=== PATIENT | male | born 1980 | race Caucasian/White ===

== ENCOUNTER 2022-06-09 14:08 | Emergency (ER) | payer MEDICAID ==
[~2022-06-09] VITALS: Ht 175.3 cm; Wt 52.3 kg
[2022-06-09] MEDS ORDERED: normal saline 1000ML IV soln IVB ONE (23:35)
[2022-06-09 23:43] LABS: BASOPHILS # (AUTO) 0.1 X10'3 (0-0.2); BASOPHILS % (AUTO) 0.8 % (0-1); EOSINOPHILS # (AUTO) 0.1 X10'3 (0-0.9); EOSINOPHILS % (AUTO) 1.4 % (0-6); HEMATOCRIT 40.2 % (42.0-52.0); HEMOGLOBIN 13.9 g/dl (14.0-17.9); LYMPHOCYTES # (AUTO) 3.7 X10'3 (1.1-4.8); LYMPHOCYTES % (AUTO) 40.6 % (21-51); MEAN CORPUSCULAR HEMOGLOBIN 32.4 PG (27.0-31.0); MEAN CORPUSCULAR HGB CONC 34.5 g/dL (33.0-36.5); MEAN PLATELET VOLUME 8.4 FL (7.4-10.4); MONOCYTES # (AUTO) 0.7 X10'3 (0-0.9); MONOCYTES % (AUTO) 7.9 % (2-12); NEUTROPHILS # (AUTO) 4.5 X10'3 (1.8-7.7); NEUTROPHILS % (AUTO) 49.3 % (42-75); PLATELET COUNT 283 X10'3 (140-440); RED BLOOD COUNT 4.27 X10'6 (4.70-6.10); RED CELL DISTRIBUTION WIDTH 13.5 % (11.5-14.5); WHITE BLOOD COUNT 9.1 X10'3 (4.5-11.0)
[2022-06-09 23:59] LABS: HEMOGLOBIN A1C 13.9 % (4.5-6.2)
[2022-06-10 00:07] LABS: ALANINE AMINOTRANSFERASE 26 U/L (12-78); ALBUMIN 3.6 G/DL (3.4-5.0); ALBUMIN/GLOBULIN RATIO 1.4 (1.1-1.5); ALKALINE PHOSPHATASE 60 IU/L (46-116); ANION GAP 10 (8-16); ASPARTATE AMINO TRANSFERASE 13 U/L (10-37); BILIRUBIN,TOTAL 0.5 MG/DL (0.1-1.0); BLOOD UREA NITROGEN 18 MG/DL (7-18); BUN/CREATININE RATIO 27.7 (5.4-32.0); CALCIUM 9.7 MG/DL (8.5-10.1); CHLORIDE 95 MMOL/L (99-107); CREATININE 0.65 MG/DL (0.60-1.10); GLUCOSE 417 MG/DL (70-104); POTASSIUM 3.9 MMOL/L (3.5-5.1); SODIUM 129 MMOL/L (135-145); TOTAL CARBON DIOXIDE 24.2 MMOL/L (24-32); TOTAL PROTEIN 6.2 G/DL (6.4-8.2); eGFR > 90 ML/MIN
[2022-06-10] MEDS ORDERED: insulin regular, human 10 units/0.1 ml syringe SQ ONE (00:45)
[2022-06-10 01:07] VITALS: BP 109/69
== END 2022-06-10 01:09 | disposition home or self-care (01) ==
LOC: ER 14:11
DX: F32.A Depression, unspecified (principal); E11.65 Type 2 diabetes mellitus with hyperglycemia
CPT/HCPCS: 36415; 80053; 82948; 83036; 84443; 85025; 96360; 96372; 99283; J1815; J7030

== ENCOUNTER 2023-09-26 11:44 | Inpatient (IN) | payer MEDICAID ==
[~2023-09-26] VITALS: Ht 170.2 cm; Wt 53.6 kg
[2023-09-26] VITALS (11 sets, daily range): BP systolic 75–114; BP diastolic 40–61; PULSE 77–105; RESP 17–37; O2SAT 91–98
[2023-09-26] MEDS: insulin regular, human 10 units/0.1 ml syringe SQ ONE (12:13)
[2023-09-26] MEDS: normal saline 1000ML IV soln IV ONE (12:13)
[2023-09-26 12:35] LABS: BASOPHILS # (AUTO) 0.3 X10'3 (0-0.2); BASOPHILS % (AUTO) 0.9 % (0-1); EOSINOPHILS # (AUTO) 0.1 X10'3 (0-0.9); EOSINOPHILS % (AUTO) 0.2 % (0-6); HEMATOCRIT 42.7 % (42.0-52.0); HEMOGLOBIN 13.6 g/dl (14.0-17.9); LYMPHOCYTES % (AUTO) 8.3 % (21-51); MEAN CORPUSCULAR HEMOGLOBIN 29.1 PG (27.0-31.0); MEAN CORPUSCULAR HGB CONC 31.9 g/dL (33.0-36.5); MEAN CORPUSCULAR VOLUME 91.2 FL (78-98); MEAN PLATELET VOLUME 10.1 FL (7.4-10.4); MONOCYTES # (AUTO) 1.9 X10'3 (0-0.9); MONOCYTES % (AUTO) 5.4 % (2-12); NEUTROPHILS # (AUTO) 30.5 X10'3 (1.8-7.7); NEUTROPHILS % (AUTO) 85.2 % (42-75); PLATELET COUNT 426 X10'3 (140-440); RED BLOOD COUNT 4.68 X10'6 (4.70-6.10); RED CELL DISTRIBUTION WIDTH 14.3 % (11.5-14.5)
[2023-09-26 12:40] LABS: WHITE BLOOD COUNT 35.8 X10'3 (4.5-11.0)
[2023-09-26 13:22] LABS: BILIRUBIN,URINE NEGATIVE (Neg); CLARITY,URINE CLEAR (Clear); COLOR,URINE YELLOW (Yellow); GLUCOSE, URINE >=1000 mg/dl (Neg); KETONES,URINE >=80 mg/dl (Neg); LEUKOCYTE ESTERASE ,URINE NEGATIVE (Neg); NITRITES, URINE NEGATIVE (Neg); OCCULT BLOOD,URINE LARGE (Neg); PH,URINE 5.5 (4.8-8.0); PROTEIN,URINE 30 mg/dl (Neg); UROBILINOGEN,URINE 0.2 E.U/dL (0.2-1.0)
[2023-09-26 13:24] LABS: UA COLLECTION TYPE OTHER
[2023-09-26 13:31] LABS: BACTERIA,URINE FEW /HPF (Neg); SQUAMOUS EPITHELIAL CELL,UR NONE SEEN /LPF (FEW); WBC,URINE NONE SEEN /HPF (0-4)
[2023-09-26 13:35] LABS: ALBUMIN 3.4 G/DL (3.4-5.0); BLOOD UREA NITROGEN 45 MG/DL (7-18); BUN/CREATININE RATIO 22.6 (10.0-20.0); CALCIUM 9.7 MG/DL (8.5-10.1); CHLORIDE 96 MMOL/L (99-107); CREATININE 1.99 MG/DL (0.60-1.10); POTASSIUM 5.4 MMOL/L (3.5-5.1); SODIUM 132 MMOL/L (135-145); eCRCL 44 ML/MIN; eGFR 37 ML/MIN
[2023-09-26 13:35] LABS: ABG HCO3 1.8 mmol/L (22.0-26.0); ABG OXYGEN SATURATION 98.4 % (94-97); ABG PCO2 (T) 10.4 mmHg (35.0-48.0); ABG PH (T) 6.799 (7.340-7.440); ABG PO2 (T) 126.5 mmHg (75.0-100.0); ALLEN'S TEST POSITIVE; FCOHb 0.3 % (0.0-3.9); FHHb 1.6 % (0.0-5.0); FMetHb 0.3 % (0.0-1.5); FO2Hb 97.8 % (94-97); MODE ROOM AIR; PATIENT TEMPERATURE 30.8; TOTAL HEMOGLOBIN 12.5 G/dl (14.0-17.9)
[2023-09-26 13:40] LABS: GLUCOSE 632 MG/DL (70-104)
[2023-09-26] MEDS: CefTRIAXone/D5W-Rocephin 1gm 50 ML IV ONE (13:48)
[2023-09-26 13:52] LABS: TOTAL CELLS COUNTED 100
[2023-09-26 13:54] LABS: BURR CELLS 1+; PLATELET ESTIMATE NORMAL
[2023-09-26] MEDS: ringers solution, lacted 1,000 ML IV ONE ×4 (14:00→18:30)
[2023-09-26] MEDS: normal saline 1000ml 1,000 ML IV ONE (14:03)
[2023-09-26] MEDS: vancomycin 1,750 MG in NS 350ml IV soln IV ONE (14:03)
[2023-09-26] MEDS: normal saline 1000ml 1,000 ML IV SCH (14:03)
[2023-09-26 14:18] LABS: ALANINE AMINOTRANSFERASE 25 U/L (12-78); ALBUMIN/GLOBULIN RATIO 0.9 (1.1-1.5); ALKALINE PHOSPHATASE 307 IU/L (46-116); ASPARTATE AMINO TRANSFERASE 59 U/L (10-37); BILIRUBIN,DIRECT 0.1 MG/DL (0-0.3); BILIRUBIN,TOTAL 0.4 MG/DL (0.1-1.0); TOTAL PROTEIN 7.1 G/DL (6.4-8.2)
[2023-09-26] MEDS: sodium bicarbonate (8.4%) 1 mEq/ml syringe IV ONE (14:18)
[2023-09-26] MEDS: Insulin Reg/NS 100units/100mL 100 ML IV PRN (14:19)
[2023-09-26 14:22] LABS: TOTAL CARBON DIOXIDE < 5 MMOL/L (24-32)
[2023-09-26 14:38] LABS: ANION GAP 31 (8-16)
[2023-09-26] MEDS ORDERED: ROSU10TA28 PO (14:44)
[2023-09-26] MEDS: sodium bicarbonate 1meq/ml inj 150 ML in dextrose 5%-water 1,000 ML IV SCH (16:09)
[2023-09-26 17:38] LABS: URINE AMPHETAMINE SCREEN NEGATIVE (Neg); URINE BARBITUATE SCREEN NEGATIVE (Neg); URINE BENZODIAZEPINES SCREEN NEGATIVE (Neg); URINE CANNABINOID SCREEN NEGATIVE (Neg); URINE COCAINE SCREEN NEGATIVE (Neg); URINE METHADONE SCREEN NEGATIVE (Neg); URINE OPIATE SCREEN NEGATIVE (Neg); URINE PHENCYCLIDINE SCREEN NEGATIVE (Neg)
[2023-09-26] MEDS: LORazepam 2 mg/ml vial ONE (17:41)
[2023-09-26 18:52] LABS: BASOPHILS # (AUTO) 0.1 X10'3 (0-0.2); BASOPHILS % (AUTO) 0.4 % (0-1); EOSINOPHILS % (AUTO) 0.1 % (0-6); HEMATOCRIT 29.1 % (42.0-52.0); LYMPHOCYTES # (AUTO) 2.1 X10'3 (1.1-4.8); LYMPHOCYTES % (AUTO) 13.7 % (21-51); MEAN CORPUSCULAR HEMOGLOBIN 29.4 PG (27.0-31.0); MEAN CORPUSCULAR HGB CONC 34.5 g/dL (33.0-36.5); MEAN CORPUSCULAR VOLUME 85.2 FL (78-98); MEAN PLATELET VOLUME 9.4 FL (7.4-10.4); MONOCYTES # (AUTO) 0.3 X10'3 (0-0.9); MONOCYTES % (AUTO) 1.7 % (2-12); NEUTROPHILS # (AUTO) 13.1 X10'3 (1.8-7.7); NEUTROPHILS % (AUTO) 84.1 % (42-75); PLATELET COUNT 213 X10'3 (140-440); RED BLOOD COUNT 3.42 X10'6 (4.70-6.10); RED CELL DISTRIBUTION WIDTH 13.7 % (11.5-14.5); WHITE BLOOD COUNT 15.6 X10'3 (4.5-11.0)
[2023-09-26 18:55] LABS: ABG BASE EXCESS -19.5 mmol/L (-2.0-2.0); ABG HCO3 7.7 mmol/L (22.0-26.0); ABG OXYGEN SATURATION 92.1 % (94-97); ABG PCO2 (T) 18.9 mmHg (35.0-48.0); ABG PH (T) 7.202 (7.340-7.440); ABG PO2 (T) 45.5 mmHg (75.0-100.0); ALLEN'S TEST Modified; FCOHb 0.3 % (0.0-3.9); FHHb 7.9 % (0.0-5.0); FMetHb 0.3 % (0.0-1.5); FO2Hb 91.5 % (94-97); MODE ROOM AIR; PATIENT TEMPERATURE 32.9; TOTAL HEMOGLOBIN 9.8 G/dl (14.0-17.9)
[2023-09-26 19:05] LABS: APTT 32 SECONDS (22-32); INR 1.2 INR; PROTHROMBIN TIME 12.8 SECONDS (9.0-12.0)
[2023-09-26 19:18] LABS: ALANINE AMINOTRANSFERASE 25 U/L (12-78); ALBUMIN 2.2 G/DL (3.4-5.0); ALBUMIN/GLOBULIN RATIO 0.9 (1.1-1.5); ALKALINE PHOSPHATASE 182 IU/L (46-116); ANION GAP 24 (8-16); ASPARTATE AMINO TRANSFERASE 76 U/L (10-37); BILIRUBIN,TOTAL 0.4 MG/DL (0.1-1.0); BLOOD UREA NITROGEN 39 MG/DL (7-18); CALCIUM 7.9 MG/DL (8.5-10.1); CHLORIDE 109 MMOL/L (99-107); GLUCOSE 144 MG/DL (70-104); MAGNESIUM 1.6 MG/DL (1.5-2.4); PHOSPHORUS 2.8 MG/DL (2.3-4.5); SODIUM 143 MMOL/L (135-145); TOTAL PROTEIN 4.6 G/DL (6.4-8.2); eCRCL 59 ML/MIN; eGFR 51 ML/MIN
[2023-09-26 19:32] LABS: CREATINE KINASE 3566 U/L (39-308)
[2023-09-26 19:37] LABS: POTASSIUM 2.9 MMOL/L (3.5-5.1); TOTAL CARBON DIOXIDE 10.2 MMOL/L (24-32)
[2023-09-26] MEDS: LORazepam 2 mg/ml vial IV ONE (19:39)
[2023-09-26] MEDS ORDERED: potassium Cl 20 mEq SR tablet PO PRN (19:45)
[2023-09-26 20:03] LABS: LIPASE > 375 U/L (16-77)
[2023-09-26] MEDS: potassium Cl 40MEQ/270ML bag 270 ML IV PRN (20:19)
[2023-09-26] MEDS ORDERED: Dextrose 10%-water IV solution 1,000 ML IV SCH (22:00)
[2023-09-26] MEDS: Dextrose 10%-water IV solution 1,000 ML IV SCH (22:17)
[2023-09-27] VITALS (35 sets, daily range): BP systolic 79–124; BP diastolic 46–74; PULSE 81–123; RESP 11–50; O2SAT 87–100
[2023-09-27] MEDS: Insulin Reg/NS 100units/100mL 100 ML IV PRN
[2023-09-27 01:11] LABS: ALBUMIN 2.1 G/DL (3.4-5.0); ANION GAP 15 (8-16); BLOOD UREA NITROGEN 36 MG/DL (7-18); BUN/CREATININE RATIO 22.4 (10.0-20.0); CALCIUM 7.8 MG/DL (8.5-10.1); CHLORIDE 108 MMOL/L (99-107); CREATININE 1.61 MG/DL (0.60-1.10); GLUCOSE 146 MG/DL (70-104); MAGNESIUM 1.3 MG/DL (1.5-2.4); POTASSIUM 3.3 MMOL/L (3.5-5.1); SODIUM 142 MMOL/L (135-145); TOTAL CARBON DIOXIDE 18.9 MMOL/L (24-32); eCRCL 55 ML/MIN; eGFR 47 ML/MIN
[2023-09-27] MEDS: magnesium 2GM in 50ml NS 50 ML IV PRN (01:29)
[2023-09-27] MEDS ORDERED: Insulin Reg/NS 100units/100mL 100 ML IV PRN (01:31)
[2023-09-27] MEDS: ringers solution, lacted 1,000 ML IV ONE ×3 (02:07→08:31)
[2023-09-27] MEDS: magnesium 4gm in 100ml NS 100 ML IV PRN (02:29)
[2023-09-27 02:47] LABS: ABG BASE EXCESS -8.1 mmol/L (-2.0-2.0); ABG HCO3 18.8 mmol/L (22.0-26.0); ABG OXYGEN SATURATION 87.8 % (94-97); ABG PH (T) 7.256 (7.340-7.440); ABG PO2 (T) 46.9 mmHg (75.0-100.0); ALLEN'S TEST Modified; FCOHb 0.4 % (0.0-3.9); FHHb 12.1 % (0.0-5.0); FMetHb 0.3 % (0.0-1.5); FO2Hb 87.2 % (94-97); MODE BiPAP; PATIENT TEMPERATURE 36.6; RESPIRATORY RATE 8 b/min; TOTAL HEMOGLOBIN 12.7 G/dl (14.0-17.9)
[2023-09-27] MEDS: NORepinephrine 8mg/ 250ml NS 250 ML IV ONE (03:01)
[2023-09-27] MEDS: NORepinephrine 8mg/ 250ml NS 250 ML IV SCH (03:01)
[2023-09-27] MEDS ORDERED: rocuronium 10mg/ml inj IV ONE (03:30)
[2023-09-27] MEDS: sodium phosphate inj. 30 MMOL in dextrose 5%-water 250 ML IV PRN (03:39)
[2023-09-27] MEDS: rocuronium 10mg/ml inj IV ONE (03:40)
[2023-09-27] MEDS: propofol 1000mg/100ml bottle 100 ML IV ONE (03:40)
[2023-09-27] MEDS: propofol 1000mg/100ml bottle 100 ML IV SCH (03:40)
[2023-09-27 04:09] LABS: BASOPHILS % (AUTO) 0.7 % (0-1); EOSINOPHILS % (AUTO) 0.1 % (0-6); HEMATOCRIT 37.3 % (42.0-52.0); HEMOGLOBIN 13.2 g/dl (14.0-17.9); LYMPHOCYTES % (AUTO) 33.7 % (21-51); MEAN CORPUSCULAR HEMOGLOBIN 29.3 PG (27.0-31.0); MEAN CORPUSCULAR HGB CONC 35.4 g/dL (33.0-36.5); MEAN CORPUSCULAR VOLUME 82.9 FL (78-98); MEAN PLATELET VOLUME 9.2 FL (7.4-10.4); MONOCYTES # (AUTO) 0.2 X10'3 (0-0.9); MONOCYTES % (AUTO) 5.4 % (2-12); NEUTROPHILS # (AUTO) 1.8 X10'3 (1.8-7.7); NEUTROPHILS % (AUTO) 60.1 % (42-75); PLATELET COUNT 236 X10'3 (140-440); RED CELL DISTRIBUTION WIDTH 14.6 % (11.5-14.5); WHITE BLOOD COUNT 3.1 X10'3 (4.5-11.0)
[2023-09-27 04:26] LABS: ALANINE AMINOTRANSFERASE 26 U/L (12-78); ALBUMIN 1.8 G/DL (3.4-5.0); ALBUMIN/GLOBULIN RATIO 0.8 (1.1-1.5); ALKALINE PHOSPHATASE 164 IU/L (46-116); ANION GAP 8 (8-16); ASPARTATE AMINO TRANSFERASE 87 U/L (10-37); BILIRUBIN,TOTAL 0.3 MG/DL (0.1-1.0); BLOOD UREA NITROGEN 33 MG/DL (7-18); BUN/CREATININE RATIO 21.7 (10.0-20.0); CALCIUM 7.2 MG/DL (8.5-10.1); CHLORIDE 106 MMOL/L (99-107); CREATININE 1.52 MG/DL (0.60-1.10); GLUCOSE 217 MG/DL (70-104); MAGNESIUM 2.5 MG/DL (1.5-2.4); PHOSPHORUS 4.6 MG/DL (2.3-4.5); SODIUM 139 MMOL/L (135-145); TOTAL CARBON DIOXIDE 24.7 MMOL/L (24-32); TOTAL PROTEIN 4.2 G/DL (6.4-8.2); eCRCL 58 ML/MIN; eGFR 50 ML/MIN
[2023-09-27 05:16] LABS: TOTAL CELLS COUNTED 100
[2023-09-27 05:17] LABS: PLATELET ESTIMATE NORMAL
[2023-09-27 05:18] LABS: ANISOCYTOSIS FEW; BURR CELLS FEW; TEAR DROP CELLS FEW
[2023-09-27] MEDS: normal saline 1000ml 1,000 ML IV SCH (05:45)
[2023-09-27] MEDS: potassium CL 20mEq in D5-1/2NS 1,000 ML IV PRN (06:05)
[2023-09-27] MEDS: FENTANYL-0.9 % NACL/PF 100 ML IV PRN (07:05)
[2023-09-27] MEDS: piperacillin/tazo 4.5gm/100ml 100 ML IV SCH (08:31)
[2023-09-27] MEDS: pantoprazole 40 MG vial IV SCH (09:01)
[2023-09-27] MEDS: enoxaparin 30mg/0.3ml syringe SUBCUT SCH (09:02)
[2023-09-27 09:48] LABS: ALBUMIN 1.6 G/DL (3.4-5.0); ANION GAP 10 (8-16); BLOOD UREA NITROGEN 32 MG/DL (7-18); BUN/CREATININE RATIO 21.9 (10.0-20.0); CALCIUM 7.6 MG/DL (8.5-10.1); CHLORIDE 109 MMOL/L (99-107); CREATININE 1.46 MG/DL (0.60-1.10); GLUCOSE 174 MG/DL (70-104); MAGNESIUM 2.5 MG/DL (1.5-2.4); POTASSIUM 3.5 MMOL/L (3.5-5.1); SODIUM 140 MMOL/L (135-145); TOTAL CARBON DIOXIDE 21.2 MMOL/L (24-32); eCRCL 60 ML/MIN; eGFR 52 ML/MIN
[2023-09-27 09:49] LABS: CREATINE KINASE 2337 U/L (39-308)
[2023-09-27] MEDS ORDERED: DEXTROSE 15 GM of carb/4 tabs (each vial/BOTTLE has 4 tablets) PO PRN ×2 (10:40)
[2023-09-27] MEDS ORDERED: dextrose 50%-water 50ml dispensing syringe IV PRN (10:40)
[2023-09-27] MEDS ORDERED: glucagon, human recombinant 1mg kit SUBCUT PRN (10:40)
[2023-09-27] MEDS: insulin Lispro (HumaLOG) vial - multi-dose SQ SCH (12:18)
[2023-09-27] MEDS: ringers solution, lacted 1,000 ML IV SCH (12:33)
[2023-09-27] MEDS: heparin, porcine 5000 units/ml vial SQ SCH (16:08)
[2023-09-27 16:29] LABS: ABG BASE EXCESS -4.2 mmol/L (-2.0-2.0); ABG HCO3 20.5 mmol/L (22.0-26.0); ABG OXYGEN SATURATION 97.3 % (94-97); ABG PCO2 (T) 37.5 mmHg (35.0-48.0); ABG PH (T) 7.359 (7.340-7.440); ABG PO2 (T) 89.1 mmHg (75.0-100.0); FCOHb 0.2 % (0.0-3.9); FHHb 2.7 % (0.0-5.0); FMetHb 0.3 % (0.0-1.5); FO2Hb 96.8 % (94-97); MODE PRVC; PATIENT TEMPERATURE 37.6; PEEP 8 cm H2O; RESPIRATORY RATE 12 b/min; TIDAL VOLUME 500 mL
[2023-09-27] MEDS: sodium phosphate inj. 15 MMOL in dextrose 5%-water 250 ML IV PRN (17:35)
[2023-09-27] MEDS ORDERED: insulin regular, human U-100 3ml vial - multi-dose SQ SCH (19:55)
[2023-09-27] MEDS: insulin glargine (Lantus) pen - multi-dose SQ SCH (20:01)
[2023-09-27] MEDS: insulin regular, human U-100 3ml vial - multi-dose SQ SCH (21:16)
[2023-09-28] VITALS (36 sets, daily range): BP systolic 93–125; BP diastolic 54–79; PULSE 84–96; RESP 11–16; O2SAT 92–100
[2023-09-28 02:10] LABS: ABG BASE EXCESS -4.8 mmol/L (-2.0-2.0); ABG HCO3 20.4 mmol/L (22.0-26.0); ABG OXYGEN SATURATION 96.6 % (94-97); ABG PCO2 (T) 38.8 mmHg (35.0-48.0); ABG PO2 (T) 80.4 mmHg (75.0-100.0); FCOHb 0.1 % (0.0-3.9); FHHb 3.4 % (0.0-5.0); FMetHb 0.3 % (0.0-1.5); FO2Hb 96.2 % (94-97); MODE PRVC; PATIENT TEMPERATURE 37.3; PEEP 5 cm H2O; RESPIRATORY RATE 12 b/min; TIDAL VOLUME 500 mL; TOTAL HEMOGLOBIN 11.7 G/dl (14.0-17.9)
[2023-09-28 02:54] LABS: BASOPHILS % (AUTO) 0 % (0-1); EOSINOPHILS % (AUTO) 0 % (0-6); HEMATOCRIT 31.3 % (42.0-52.0); HEMOGLOBIN 10.9 g/dl (14.0-17.9); LYMPHOCYTES # (AUTO) 1.4 X10'3 (1.1-4.8); LYMPHOCYTES % (AUTO) 9.4 % (21-51); MEAN CORPUSCULAR HEMOGLOBIN 29.2 PG (27.0-31.0); MEAN CORPUSCULAR HGB CONC 34.8 g/dL (33.0-36.5); MEAN CORPUSCULAR VOLUME 83.8 FL (78-98); MONOCYTES # (AUTO) 0.5 X10'3 (0-0.9); MONOCYTES % (AUTO) 3.5 % (2-12); NEUTROPHILS # (AUTO) 12.8 X10'3 (1.8-7.7); NEUTROPHILS % (AUTO) 87.1 % (42-75); PLATELET COUNT 154 X10'3 (140-440); RED BLOOD COUNT 3.73 X10'6 (4.70-6.10); RED CELL DISTRIBUTION WIDTH 14.5 % (11.5-14.5); WHITE BLOOD COUNT 14.7 X10'3 (4.5-11.0)
[2023-09-28 03:30] LABS: ALANINE AMINOTRANSFERASE 26 U/L (12-78); ALBUMIN 1.5 G/DL (3.4-5.0); ALBUMIN/GLOBULIN RATIO 0.6 (1.1-1.5); ALKALINE PHOSPHATASE 124 IU/L (46-116); ANION GAP 7 (8-16); ASPARTATE AMINO TRANSFERASE 47 U/L (10-37); BILIRUBIN,TOTAL 0.3 MG/DL (0.1-1.0); BLOOD UREA NITROGEN 29 MG/DL (7-18); BUN/CREATININE RATIO 15.3 (10.0-20.0); CALCIUM 7.5 MG/DL (8.5-10.1); CHLORIDE 108 MMOL/L (99-107); CREATININE 1.89 MG/DL (0.60-1.10); GLUCOSE 296 MG/DL (70-104); MAGNESIUM 2.3 MG/DL (1.5-2.4); PHOSPHORUS 3.2 MG/DL (2.3-4.5); POTASSIUM 3.6 MMOL/L (3.5-5.1); SODIUM 139 MMOL/L (135-145); TOTAL CARBON DIOXIDE 23.6 MMOL/L (24-32); TOTAL PROTEIN 4.1 G/DL (6.4-8.2); TRIGLYCERIDES 120 MG/DL (20-135); eCRCL 47 ML/MIN; eGFR 39 ML/MIN
[2023-09-28 08:48] LABS: CREATINE KINASE 783 U/L (39-308)
[2023-09-28 10:19] LABS: TOTAL CELLS COUNTED 100
[2023-09-28 10:20] LABS: PLATELET ESTIMATE NORMAL; SMUDGE CELLS FEW
[2023-09-28 10:21] LABS: BURR CELLS 1+
[2023-09-28] MEDS: ringers solution, lacted 1,000 ML IV ONE ×2 (10:22→12:32)
[2023-09-29] VITALS (34 sets, daily range): BP systolic 97–158; BP diastolic 56–89; PULSE 85–102; RESP 10–21; O2SAT 94–99
[2023-09-29 02:53] LABS: BASOPHILS % (AUTO) 0.3 % (0-1); EOSINOPHILS # (AUTO) 0.1 X10'3 (0-0.9); EOSINOPHILS % (AUTO) 1.2 % (0-6); HEMATOCRIT 27.9 % (42.0-52.0); HEMOGLOBIN 9.7 g/dl (14.0-17.9); LYMPHOCYTES # (AUTO) 1.5 X10'3 (1.1-4.8); LYMPHOCYTES % (AUTO) 15.9 % (21-51); MEAN CORPUSCULAR HGB CONC 34.7 g/dL (33.0-36.5); MEAN CORPUSCULAR VOLUME 83.7 FL (78-98); MEAN PLATELET VOLUME 9.7 FL (7.4-10.4); MONOCYTES # (AUTO) 0.4 X10'3 (0-0.9); MONOCYTES % (AUTO) 3.7 % (2-12); NEUTROPHILS # (AUTO) 7.7 X10'3 (1.8-7.7); NEUTROPHILS % (AUTO) 78.9 % (42-75); PLATELET COUNT 116 X10'3 (140-440); RED BLOOD COUNT 3.33 X10'6 (4.70-6.10); RED CELL DISTRIBUTION WIDTH 15.1 % (11.5-14.5); WHITE BLOOD COUNT 9.7 X10'3 (4.5-11.0)
[2023-09-29 03:03] LABS: ALANINE AMINOTRANSFERASE 18 U/L (12-78); ALBUMIN 1.4 G/DL (3.4-5.0); ALBUMIN/GLOBULIN RATIO 0.5 (1.1-1.5); ALKALINE PHOSPHATASE 108 IU/L (46-116); ANION GAP 4 (8-16); ASPARTATE AMINO TRANSFERASE 30 U/L (10-37); BILIRUBIN,TOTAL 0.3 MG/DL (0.1-1.0); BLOOD UREA NITROGEN 26 MG/DL (7-18); BUN/CREATININE RATIO 15.2 (10.0-20.0); CALCIUM 7.9 MG/DL (8.5-10.1); CHLORIDE 109 MMOL/L (99-107); CREATININE 1.71 MG/DL (0.60-1.10); GLUCOSE 127 MG/DL (70-104); MAGNESIUM 2.1 MG/DL (1.5-2.4); PHOSPHORUS 2.2 MG/DL (2.3-4.5); PREALBUMIN 6.4 MG/DL (19-36); SODIUM 140 MMOL/L (135-145); TOTAL CARBON DIOXIDE 27.4 MMOL/L (24-32); TOTAL PROTEIN 4.3 G/DL (6.4-8.2); eCRCL 52 ML/MIN; eGFR 44 ML/MIN
[2023-09-29 03:05] LABS: POTASSIUM 2.9 MMOL/L (3.5-5.1)
[2023-09-29 03:22] LABS: ABG BASE EXCESS -1.4 mmol/L (-2.0-2.0); ABG HCO3 23.6 mmol/L (22.0-26.0); ABG OXYGEN SATURATION 97.4 % (94-97); ABG PCO2 (T) 41.7 mmHg (35.0-48.0); ABG PH (T) 7.372 (7.340-7.440); ABG PO2 (T) 89.4 mmHg (75.0-100.0); FCOHb 0.3 % (0.0-3.9); FHHb 2.6 % (0.0-5.0); FMetHb 0.3 % (0.0-1.5); FO2Hb 96.8 % (94-97); MODE VENT - AC; PATIENT TEMPERATURE 37.4; PEEP 5 cm H2O; RESPIRATORY RATE 12 b/min; TIDAL VOLUME 500 mL; TOTAL HEMOGLOBIN 10.2 G/dl (14.0-17.9)
[2023-09-30] VITALS (35 sets, daily range): BP systolic 97–173; BP diastolic 57–94; PULSE 87–103; RESP 11–22; O2SAT 95–100
[2023-09-30 03:29] LABS: ABG BASE EXCESS 0.6 mmol/L (-2.0-2.0); ABG HCO3 24.6 mmol/L (22.0-26.0); ABG OXYGEN SATURATION 96.2 % (94-97); ABG PCO2 (T) 37.9 mmHg (35.0-48.0); ABG PH (T) 7.432 (7.340-7.440); ABG PO2 (T) 73.1 mmHg (75.0-100.0); FCOHb 0.5 % (0.0-3.9); FHHb 3.8 % (0.0-5.0); FMetHb 0.3 % (0.0-1.5); FO2Hb 95.4 % (94-97); MODE VENT - prvc; PATIENT TEMPERATURE 37.4; PEEP 5 cm H2O; RESPIRATORY RATE 12 b/min; TIDAL VOLUME 500 mL; TOTAL HEMOGLOBIN 12.3 G/dl (14.0-17.9)
[2023-09-30 03:31] LABS: BASOPHILS % (AUTO) 0.4 % (0-1); EOSINOPHILS # (AUTO) 0.2 X10'3 (0-0.9); EOSINOPHILS % (AUTO) 1.6 % (0-6); HEMATOCRIT 27.5 % (42.0-52.0); HEMOGLOBIN 9.5 g/dl (14.0-17.9); LYMPHOCYTES # (AUTO) 1.1 X10'3 (1.1-4.8); MEAN CORPUSCULAR HEMOGLOBIN 29.1 PG (27.0-31.0); MEAN CORPUSCULAR HGB CONC 34.6 g/dL (33.0-36.5); MEAN CORPUSCULAR VOLUME 84.2 FL (78-98); MONOCYTES # (AUTO) 0.7 X10'3 (0-0.9); MONOCYTES % (AUTO) 6.2 % (2-12); NEUTROPHILS # (AUTO) 9.2 X10'3 (1.8-7.7); NEUTROPHILS % (AUTO) 81.8 % (42-75); PLATELET COUNT 131 X10'3 (140-440); RED BLOOD COUNT 3.27 X10'6 (4.70-6.10); RED CELL DISTRIBUTION WIDTH 15.2 % (11.5-14.5); WHITE BLOOD COUNT 11.3 X10'3 (4.5-11.0)
[2023-09-30 03:43] LABS: ALANINE AMINOTRANSFERASE 19 U/L (12-78); ALBUMIN 1.3 G/DL (3.4-5.0); ALBUMIN/GLOBULIN RATIO 0.4 (1.1-1.5); ALKALINE PHOSPHATASE 108 IU/L (46-116); ANION GAP 8 (8-16); ASPARTATE AMINO TRANSFERASE 28 U/L (10-37); BILIRUBIN,TOTAL 0.3 MG/DL (0.1-1.0); BLOOD UREA NITROGEN 26 MG/DL (7-18); BUN/CREATININE RATIO 15.5 (10.0-20.0); CALCIUM 8.5 MG/DL (8.5-10.1); CHLORIDE 111 MMOL/L (99-107); CREATININE 1.68 MG/DL (0.60-1.10); GLUCOSE 149 MG/DL (70-104); MAGNESIUM 1.8 MG/DL (1.5-2.4); PHOSPHORUS 2.3 MG/DL (2.3-4.5); POTASSIUM 3.8 MMOL/L (3.5-5.1); SODIUM 145 MMOL/L (135-145); TOTAL CARBON DIOXIDE 26.3 MMOL/L (24-32); TOTAL PROTEIN 4.8 G/DL (6.4-8.2); eCRCL 52 ML/MIN; eGFR 45 ML/MIN
[2023-09-30] MEDS: fondaparinux 2.5 MG/0.5 ML syringe SUBCUT SCH (07:34)
[2023-09-30] MEDS ORDERED: DEXTROSE 15 GM of carb/4 tabs (each vial/BOTTLE has 4 tablets) OGT PRN ×2 (11:45)
[2023-09-30] MEDS: propofol 1000mg/100ml bottle 100 ML IV SCH (16:27)
[2023-09-30] MEDS: docusate sodium 100mg/10ml UD cup OGT SCH (20:27)
[2023-10-01] VITALS (36 sets, daily range): BP systolic 100–143; BP diastolic 63–91; PULSE 86–112; RESP 12–28; O2SAT 97–100
[2023-10-01 03:10] LABS: BASOPHILS % (AUTO) 0.4 % (0-1); EOSINOPHILS # (AUTO) 0.2 X10'3 (0-0.9); EOSINOPHILS % (AUTO) 3.5 % (0-6); HEMATOCRIT 28.2 % (42.0-52.0); HEMOGLOBIN 9.5 g/dl (14.0-17.9); LYMPHOCYTES # (AUTO) 1.4 X10'3 (1.1-4.8); LYMPHOCYTES % (AUTO) 21.8 % (21-51); MEAN CORPUSCULAR HEMOGLOBIN 28.9 PG (27.0-31.0); MEAN CORPUSCULAR HGB CONC 33.9 g/dL (33.0-36.5); MEAN CORPUSCULAR VOLUME 85.5 FL (78-98); MONOCYTES # (AUTO) 0.7 X10'3 (0-0.9); MONOCYTES % (AUTO) 11.2 % (2-12); NEUTROPHILS % (AUTO) 63.1 % (42-75); PLATELET COUNT 158 X10'3 (140-440); RED CELL DISTRIBUTION WIDTH 15.1 % (11.5-14.5); WHITE BLOOD COUNT 6.4 X10'3 (4.5-11.0)
[2023-10-01 03:16] LABS: ABG BASE EXCESS -1.5 mmol/L (-2.0-2.0); ABG HCO3 22.4 mmol/L (22.0-26.0); ABG OXYGEN SATURATION 98.3 % (94-97); ABG PCO2 (T) 35.9 mmHg (35.0-48.0); ABG PH (T) 7.417 (7.340-7.440); ABG PO2 (T) 109.5 mmHg (75.0-100.0); FCOHb 0.3 % (0.0-3.9); FHHb 1.7 % (0.0-5.0); FMetHb 0.3 % (0.0-1.5); FO2Hb 97.7 % (94-97); MODE VENT - PRVC; PATIENT TEMPERATURE 37.9; PEEP 5 cm H2O; RESPIRATORY RATE 12 b/min; TIDAL VOLUME 500 mL; TOTAL HEMOGLOBIN 10.5 G/dl (14.0-17.9)
[2023-10-01 03:43] LABS: ALANINE AMINOTRANSFERASE 14 U/L (12-78); ALBUMIN 1.1 G/DL (3.4-5.0); ALBUMIN/GLOBULIN RATIO 0.3 (1.1-1.5); ALKALINE PHOSPHATASE 117 IU/L (46-116); ANION GAP 8 (8-16); ASPARTATE AMINO TRANSFERASE 23 U/L (10-37); BILIRUBIN,TOTAL 0.2 MG/DL (0.1-1.0); BLOOD UREA NITROGEN 25 MG/DL (7-18); BUN/CREATININE RATIO 16.3 (10.0-20.0); CALCIUM 8.4 MG/DL (8.5-10.1); CHLORIDE 107 MMOL/L (99-107); CREATININE 1.53 MG/DL (0.60-1.10); GLUCOSE 190 MG/DL (70-104); MAGNESIUM 1.7 MG/DL (1.5-2.4); PHOSPHORUS 2.4 MG/DL (2.3-4.5); POTASSIUM 3.6 MMOL/L (3.5-5.1); SODIUM 141 MMOL/L (135-145); eCRCL 58 ML/MIN; eGFR 50 ML/MIN
[2023-10-01] MEDS: normal saline 1000ml 1,000 ML IV SCH (16:00)
[2023-10-02] VITALS (39 sets, daily range): BP systolic 113–152; BP diastolic 71–96; PULSE 89–110; RESP 0–33; TEMP 98.1–98.9; O2SAT 92–100
[2023-10-02 02:48] LABS: BASOPHILS # (AUTO) 0.1 X10'3 (0-0.2); BASOPHILS % (AUTO) 1.6 % (0-1); EOSINOPHILS # (AUTO) 0.2 X10'3 (0-0.9); EOSINOPHILS % (AUTO) 4.8 % (0-6); HEMATOCRIT 27.9 % (42.0-52.0); HEMOGLOBIN 9.6 g/dl (14.0-17.9); LYMPHOCYTES # (AUTO) 1.5 X10'3 (1.1-4.8); LYMPHOCYTES % (AUTO) 30.5 % (21-51); MEAN CORPUSCULAR HGB CONC 34.2 g/dL (33.0-36.5); MEAN CORPUSCULAR VOLUME 84.6 FL (78-98); MEAN PLATELET VOLUME 8.5 FL (7.4-10.4); MONOCYTES # (AUTO) 0.8 X10'3 (0-0.9); MONOCYTES % (AUTO) 17.4 % (2-12); NEUTROPHILS # (AUTO) 2.2 X10'3 (1.8-7.7); NEUTROPHILS % (AUTO) 45.7 % (42-75); PLATELET COUNT 205 X10'3 (140-440); RED CELL DISTRIBUTION WIDTH 15.2 % (11.5-14.5); WHITE BLOOD COUNT 4.8 X10'3 (4.5-11.0)
[2023-10-02 02:49] LABS: ALANINE AMINOTRANSFERASE 13 U/L (12-78); ALBUMIN 1.1 G/DL (3.4-5.0); ALBUMIN/GLOBULIN RATIO 0.3 (1.1-1.5); ALKALINE PHOSPHATASE 112 IU/L (46-116); ANION GAP 8 (8-16); ASPARTATE AMINO TRANSFERASE 19 U/L (10-37); BILIRUBIN,TOTAL 0.2 MG/DL (0.1-1.0); BLOOD UREA NITROGEN 29 MG/DL (7-18); BUN/CREATININE RATIO 18.8 (10.0-20.0); CALCIUM 8.6 MG/DL (8.5-10.1); CHLORIDE 106 MMOL/L (99-107); CREATININE 1.54 MG/DL (0.60-1.10); GLUCOSE 194 MG/DL (70-104); MAGNESIUM 1.5 MG/DL (1.5-2.4); SODIUM 142 MMOL/L (135-145); TOTAL CARBON DIOXIDE 27.8 MMOL/L (24-32); TOTAL PROTEIN 5.3 G/DL (6.4-8.2); eCRCL 57 ML/MIN; eGFR 49 ML/MIN
[2023-10-02 02:50] LABS: POTASSIUM 3.5 MMOL/L (3.5-5.1)
[2023-10-02 03:25] LABS: ABG BASE EXCESS 1.9 mmol/L (-2.0-2.0); ABG OXYGEN SATURATION 99.2 % (94-97); ABG PCO2 (T) 33.9 mmHg (35.0-48.0); ABG PH (T) 7.485 (7.340-7.440); ABG PO2 (T) 139.6 mmHg (75.0-100.0); FCOHb 0.3 % (0.0-3.9); FHHb 0.8 % (0.0-5.0); FMetHb 0.3 % (0.0-1.5); FO2Hb 98.6 % (94-97); MODE VENT - PRVC; PATIENT TEMPERATURE 37.3; PEEP 5 cm H2O; RESPIRATORY RATE 12 b/min; TIDAL VOLUME 500 mL; TOTAL HEMOGLOBIN 10.3 G/dl (14.0-17.9)
[2023-10-02] MEDS: Neutra Phos packet PO PRN (08:11)
[2023-10-03 06:52] VITALS: BP 114/69; PULSE 91; RESP 20; TEMP 99.6; O2SAT 91
[2023-10-03 07:31] LABS: BASOPHILS % (AUTO) 0.7 % (0-1); EOSINOPHILS # (AUTO) 0.2 X10'3 (0-0.9); EOSINOPHILS % (AUTO) 3.4 % (0-6); HEMATOCRIT 28.1 % (42.0-52.0); HEMOGLOBIN 9.3 g/dl (14.0-17.9); LYMPHOCYTES # (AUTO) 1.5 X10'3 (1.1-4.8); MEAN CORPUSCULAR HEMOGLOBIN 28.3 PG (27.0-31.0); MEAN CORPUSCULAR HGB CONC 33.2 g/dL (33.0-36.5); MEAN CORPUSCULAR VOLUME 85.2 FL (78-98); MEAN PLATELET VOLUME 7.9 FL (7.4-10.4); MONOCYTES # (AUTO) 0.8 X10'3 (0-0.9); MONOCYTES % (AUTO) 14.1 % (2-12); NEUTROPHILS # (AUTO) 3.3 X10'3 (1.8-7.7); NEUTROPHILS % (AUTO) 55.8 % (42-75); PLATELET COUNT 320 X10'3 (140-440); RED CELL DISTRIBUTION WIDTH 14.7 % (11.5-14.5); WHITE BLOOD COUNT 5.9 X10'3 (4.5-11.0)
[2023-10-03 07:31] LABS: ALANINE AMINOTRANSFERASE 15 U/L (12-78); ALBUMIN 1.2 G/DL (3.4-5.0); ALBUMIN/GLOBULIN RATIO 0.3 (1.1-1.5); ALKALINE PHOSPHATASE 97 IU/L (46-116); ANION GAP 7 (8-16); ASPARTATE AMINO TRANSFERASE 23 U/L (10-37); BILIRUBIN,TOTAL 0.2 MG/DL (0.1-1.0); BLOOD UREA NITROGEN 28 MG/DL (7-18); BUN/CREATININE RATIO 18.9 (10.0-20.0); CALCIUM 8.1 MG/DL (8.5-10.1); CHLORIDE 108 MMOL/L (99-107); CREATININE 1.48 MG/DL (0.60-1.10); GLUCOSE 147 MG/DL (70-104); MAGNESIUM 1.7 MG/DL (1.5-2.4); PHOSPHORUS 2.5 MG/DL (2.3-4.5); SODIUM 141 MMOL/L (135-145); TOTAL CARBON DIOXIDE 26.1 MMOL/L (24-32); TOTAL PROTEIN 5.1 G/DL (6.4-8.2); eCRCL 60 ML/MIN; eGFR 52 ML/MIN
[2023-10-03] MEDS: potassium Cl 40MEQ/1/2NS 520ml 520 ML IV PRN (09:01)
[2023-10-03 10:00] VITALS: BP 107/64; PULSE 84; RESP 14; RESP 19; TEMP 98.3; O2SAT 92
[2023-10-03] MEDS: levoFLOXACIN-Levaquin 500mg/D5 100 ML IV SCH (11:30)
[2023-10-03 18:00] VITALS: BP 131/74; PULSE 69; RESP 18; TEMP 98.1; O2SAT 97
[2023-10-03 20:20] VITALS: RESP 18; O2SAT 97
[2023-10-03 20:28] VITALS: PULSE 76; RESP 16; O2SAT 92
[2023-10-03 22:00] VITALS: BP 129/96; PULSE 80; RESP 24; TEMP 99.4; O2SAT 92
[2023-10-04] VITALS (10 sets, daily range): BP systolic 116–126; BP diastolic 71–79; PULSE 54–82; RESP 14–20; TEMP 97–99.3; O2SAT 93–97
[2023-10-04] MEDS: potassium Cl 20 mEq SR tablet PO PRN (00:59)
[2023-10-04 06:08] LABS: BASOPHILS % (AUTO) 0.6 % (0-1); EOSINOPHILS # (AUTO) 0.3 X10'3 (0-0.9); EOSINOPHILS % (AUTO) 3.5 % (0-6); HEMATOCRIT 26.3 % (42.0-52.0); LYMPHOCYTES # (AUTO) 1.8 X10'3 (1.1-4.8); LYMPHOCYTES % (AUTO) 24.7 % (21-51); MEAN CORPUSCULAR HGB CONC 34.1 g/dL (33.0-36.5); MEAN CORPUSCULAR VOLUME 85.1 FL (78-98); MEAN PLATELET VOLUME 7.7 FL (7.4-10.4); MONOCYTES # (AUTO) 0.6 X10'3 (0-0.9); MONOCYTES % (AUTO) 8.4 % (2-12); NEUTROPHILS # (AUTO) 4.7 X10'3 (1.8-7.7); NEUTROPHILS % (AUTO) 62.8 % (42-75); PLATELET COUNT 387 X10'3 (140-440); RED BLOOD COUNT 3.09 X10'6 (4.70-6.10); RED CELL DISTRIBUTION WIDTH 14.5 % (11.5-14.5); WHITE BLOOD COUNT 7.5 X10'3 (4.5-11.0)
[2023-10-04 06:23] LABS: ALANINE AMINOTRANSFERASE 15 U/L (12-78); ALBUMIN 1.1 G/DL (3.4-5.0); ALBUMIN/GLOBULIN RATIO 0.3 (1.1-1.5); ALKALINE PHOSPHATASE 85 IU/L (46-116); ANION GAP 6 (8-16); ASPARTATE AMINO TRANSFERASE 16 U/L (10-37); BILIRUBIN,TOTAL 0.2 MG/DL (0.1-1.0); BLOOD UREA NITROGEN 27 MG/DL (7-18); BUN/CREATININE RATIO 20.5 (10.0-20.0); CALCIUM 7.9 MG/DL (8.5-10.1); CHLORIDE 109 MMOL/L (99-107); CREATINE KINASE 27 U/L (39-308); CREATININE 1.32 MG/DL (0.60-1.10); GLUCOSE 171 MG/DL (70-104); MAGNESIUM 1.7 MG/DL (1.5-2.4); PHOSPHORUS 2.3 MG/DL (2.3-4.5); POTASSIUM 3.4 MMOL/L (3.5-5.1); SODIUM 141 MMOL/L (135-145); TOTAL CARBON DIOXIDE 25.8 MMOL/L (24-32); TOTAL PROTEIN 4.9 G/DL (6.4-8.2); eCRCL 67 ML/MIN; eGFR 59 ML/MIN
[2023-10-05] VITALS (10 sets, daily range): BP systolic 120–144; BP diastolic 73–81; PULSE 58–77; RESP 14–18; TEMP 97–97.9; O2SAT 92–99
[2023-10-05] MEDS: dextrose 50%-water 50ml dispensing syringe IV PRN (01:37)
[2023-10-05 13:10] LABS: BASOPHILS # (AUTO) 0.1 X10'3 (0-0.2); BASOPHILS % (AUTO) 0.9 % (0-1); EOSINOPHILS # (AUTO) 0.4 X10'3 (0-0.9); EOSINOPHILS % (AUTO) 4.1 % (0-6); HEMATOCRIT 29.6 % (42.0-52.0); LYMPHOCYTES # (AUTO) 1.6 X10'3 (1.1-4.8); LYMPHOCYTES % (AUTO) 16.8 % (21-51); MEAN CORPUSCULAR HGB CONC 33.8 g/dL (33.0-36.5); MEAN CORPUSCULAR VOLUME 85.8 FL (78-98); MEAN PLATELET VOLUME 8.1 FL (7.4-10.4); MONOCYTES # (AUTO) 0.5 X10'3 (0-0.9); MONOCYTES % (AUTO) 5.2 % (2-12); PLATELET COUNT 455 X10'3 (140-440); RED BLOOD COUNT 3.45 X10'6 (4.70-6.10); RED CELL DISTRIBUTION WIDTH 14.4 % (11.5-14.5); WHITE BLOOD COUNT 9.7 X10'3 (4.5-11.0)
[2023-10-05 13:21] LABS: ALANINE AMINOTRANSFERASE 17 U/L (12-78); ALBUMIN 1.3 G/DL (3.4-5.0); ALBUMIN/GLOBULIN RATIO 0.3 (1.1-1.5); ALKALINE PHOSPHATASE 87 IU/L (46-116); ANION GAP 6 (8-16); ASPARTATE AMINO TRANSFERASE 20 U/L (10-37); BILIRUBIN,TOTAL 0.2 MG/DL (0.1-1.0); BLOOD UREA NITROGEN 32 MG/DL (7-18); BUN/CREATININE RATIO 26.4 (10.0-20.0); CALCIUM 8.4 MG/DL (8.5-10.1); CHLORIDE 105 MMOL/L (99-107); CREATININE 1.21 MG/DL (0.60-1.10); GLUCOSE 254 MG/DL (70-104); SODIUM 137 MMOL/L (135-145); TOTAL CARBON DIOXIDE 26.4 MMOL/L (24-32); TOTAL PROTEIN 5.3 G/DL (6.4-8.2); TRIGLYCERIDES 160 MG/DL (20-135); eCRCL 73 ML/MIN; eGFR 65 ML/MIN
[2023-10-05 15:09] LABS: LORAZEPAM (ATIVAN) 19 ng/mL (50 - 240)
[2023-10-06] VITALS (9 sets, daily range): BP systolic 100–141; BP diastolic 56–86; PULSE 49–89; RESP 14–18; TEMP 98.3–98.7; O2SAT 94–98
[2023-10-07] MEDS ORDERED: dextrose 50%-water 50ml dispensing syringe IV PRN ×2 (02:25)
[2023-10-07] MEDS ORDERED: DEXTROSE 15 GM of carb/4 tabs (each vial/BOTTLE has 4 tablets) PO PRN ×2 (02:25)
[2023-10-07 06:00] VITALS: BP 119/80; PULSE 66; RESP 16; TEMP 97.9; O2SAT 95
[2023-10-07] MEDS: insulin regular, human U-100 3ml vial - multi-dose SQ SCH ×2 (09:11→09:13)
[2023-10-07 11:00] VITALS: BP 101/68; PULSE 72; RESP 16; TEMP 98.4; O2SAT 99
[2023-10-07] MEDS ORDERED: PANT-47 PO (12:10)
[2023-10-07 20:00] VITALS: BP 116/81; PULSE 87; RESP 16; TEMP 98.4; O2SAT 96
[2023-10-07] MEDS: insulin glargine (Lantus) pen - multi-dose SQ SCH (21:32)
[2023-10-07 23:32] VITALS: PULSE 85; RESP 16; O2SAT 96
[2023-10-08] VITALS (7 sets, daily range): BP systolic 122–138; BP diastolic 71–79; PULSE 52–82; RESP 16–19; TEMP 97.7–98.4; O2SAT 98
[2023-10-08] MEDS ORDERED: insulin glargine (Lantus) pen - multi-dose SQ SCH (12:52)
[2023-10-08] MEDS: insulin Lispro (HumaLOG) vial - multi-dose SQ SCH (19:48)
[2023-10-08] MEDS: insulin glargine (Lantus) pen - multi-dose SQ SCH (21:58)
[2023-10-09] VITALS (8 sets, daily range): BP systolic 113–127; BP diastolic 60–83; PULSE 54–89; RESP 14–18; TEMP 97.8–98.2; O2SAT 9–100
[2023-10-09] MEDS: glucagon, human recombinant 1mg kit SUBCUT PRN (08:45)
[2023-10-09] MEDS ORDERED: dextrose 50%-water 50ml dispensing syringe IV PRN ×2 (09:10)
[2023-10-10] MEDS: insulin Lispro (HumaLOG) vial - multi-dose SQ ONE (05:04)
[2023-10-10 06:00] VITALS: BP 135/77; PULSE 84; RESP 20; TEMP 96; O2SAT 99
[2023-10-10 08:30] VITALS: RESP 16
[2023-10-10 09:49] VITALS: BP 106/61; PULSE 87; RESP 14; TEMP 97.7; O2SAT 94
[2023-10-10] MEDS: insulin Lispro (HumaLOG) vial - multi-dose SQ SCH (14:23)
[2023-10-10 18:00] VITALS: BP 115/77; PULSE 71; RESP 18; TEMP 98.4; O2SAT 96
[2023-10-10 19:25] VITALS: BP 115/77; PULSE 71; RESP 18; RESP 19; TEMP 98.4; O2SAT 96; O2SAT 98
[2023-10-10] MEDS: insulin glargine (Lantus) pen - multi-dose SQ SCH (22:01)
[2023-10-11 07:00] VITALS: BP 119/71; PULSE 58; RESP 16; TEMP 98; O2SAT 98
[2023-10-11 09:30] VITALS: RESP 18; O2SAT 97
[2023-10-11 10:00] VITALS: BP 122/70; PULSE 88; RESP 16; TEMP 97.9; O2SAT 100
[2023-10-11 15:30] VITALS: PULSE 75; RESP 18
[2023-10-11 18:00] VITALS: BP 120/66; PULSE 51; RESP 20; TEMP 98.3; O2SAT 98
[2023-10-12] VITALS (8 sets, daily range): BP systolic 112–123; BP diastolic 67–81; PULSE 62–93; RESP 14–20; TEMP 97.9–98.4; O2SAT 95–100
[2023-10-12 07:02] LABS: TRIGLYCERIDES 175 MG/DL (20-135)
[2023-10-12 14:11] LABS: ALBUMIN 2.1 G/DL (3.4-5.0); ANION GAP 7 (8-16); BLOOD UREA NITROGEN 23 MG/DL (7-18); BUN/CREATININE RATIO 23.2 (10.0-20.0); CALCIUM 9.9 MG/DL (8.5-10.1); CHLORIDE 103 MMOL/L (99-107); CREATININE 0.99 MG/DL (0.60-1.10); GLUCOSE 211 MG/DL (70-104); POTASSIUM 3.8 MMOL/L (3.5-5.1); SODIUM 138 MMOL/L (135-145); TOTAL CARBON DIOXIDE 28.1 MMOL/L (24-32); eCRCL 83 ML/MIN; eGFR 82 ML/MIN
[2023-10-12 14:12] LABS: HEMOGLOBIN 11.3 g/dl (14.0-17.9); LYMPHOCYTES # (AUTO) 2.4 X10'3 (1.1-4.8); MEAN CORPUSCULAR HEMOGLOBIN 28.5 PG (27.0-31.0)
[2023-10-12 14:13] LABS: BASOPHILS % (AUTO) 0.4 % (0-1); EOSINOPHILS # (AUTO) 0.1 X10'3 (0-0.9); EOSINOPHILS % (AUTO) 1.4 % (0-6); LYMPHOCYTES % (AUTO) 25.8 % (21-51); MEAN CORPUSCULAR HGB CONC 33.3 g/dL (33.0-36.5); MEAN CORPUSCULAR VOLUME 85.6 FL (78-98); MEAN PLATELET VOLUME 8.7 FL (7.4-10.4); MONOCYTES # (AUTO) 0.8 X10'3 (0-0.9); MONOCYTES % (AUTO) 8.2 % (2-12); NEUTROPHILS # (AUTO) 5.9 X10'3 (1.8-7.7); NEUTROPHILS % (AUTO) 64.2 % (42-75); PLATELET COUNT 850 X10'3 (140-440); RED BLOOD COUNT 3.97 X10'6 (4.70-6.10); RED CELL DISTRIBUTION WIDTH 14.6 % (11.5-14.5); WHITE BLOOD COUNT 9.2 X10'3 (4.5-11.0)
[2023-10-12] MEDS: LORazepam 2 mg/ml vial IV ONE (23:00)
[2023-10-13] VITALS (7 sets, daily range): BP systolic 111–123; BP diastolic 68–74; PULSE 60–84; RESP 12–16; TEMP 97.5–98.8; O2SAT 93–100
[2023-10-13] MEDS ORDERED: glucagon, human recombinant 1mg kit SUBCUT PRN (08:45)
[2023-10-13] MEDS ORDERED: DEXTROSE 15 GM of carb/4 tabs (each vial/BOTTLE has 4 tablets) PO PRN (08:45)
[2023-10-13] MEDS ORDERED: dextrose 50%-water 50ml dispensing syringe IV PRN ×2 (08:45)
[2023-10-13] MEDS: LORazepam 2 mg/ml vial IV PRN (09:54)
[2023-10-14] VITALS (7 sets, daily range): BP systolic 109–139; BP diastolic 66–86; PULSE 57–76; RESP 14–20; TEMP 97.3–97.9; O2SAT 96–100
[2023-10-14] MEDS: morphine 2 MG/ML inj. syringe IV ONE (00:32)
[2023-10-14] MEDS: HYDROcodone/acetaminophen 5mg/325mg tablet PO PRN (11:55)
[2023-10-15 06:00] VITALS: BP 97/72; PULSE 79; RESP 16; TEMP 97.8; O2SAT 98
[2023-10-15 08:46] LABS: HEMATOCRIT 32.4 % (42.0-52.0); MEAN CORPUSCULAR HEMOGLOBIN 28.8 PG (27.0-31.0); MEAN CORPUSCULAR HGB CONC 34.1 g/dL (33.0-36.5); MEAN CORPUSCULAR VOLUME 84.4 FL (78-98); PLATELET COUNT 728 X10'3 (140-440); RED BLOOD COUNT 3.84 X10'6 (4.70-6.10); RED CELL DISTRIBUTION WIDTH 14.2 % (11.5-14.5); WHITE BLOOD COUNT 6.8 X10'3 (4.5-11.0)
[2023-10-15 08:57] LABS: ALANINE AMINOTRANSFERASE 14 U/L (12-78); ALBUMIN 2.1 G/DL (3.4-5.0); ALBUMIN/GLOBULIN RATIO 0.5 (1.1-1.5); ALKALINE PHOSPHATASE 104 IU/L (46-116); ANION GAP 6 (8-16); ASPARTATE AMINO TRANSFERASE 11 U/L (10-37); BILIRUBIN,TOTAL 0.1 MG/DL (0.1-1.0); BLOOD UREA NITROGEN 25 MG/DL (7-18); BUN/CREATININE RATIO 24.5 (10.0-20.0); CALCIUM 9.8 MG/DL (8.5-10.1); CHLORIDE 103 MMOL/L (99-107); CREATININE 1.02 MG/DL (0.60-1.10); GLUCOSE 200 MG/DL (70-104); MAGNESIUM 1.6 MG/DL (1.5-2.4); POTASSIUM 4.5 MMOL/L (3.5-5.1); SODIUM 137 MMOL/L (135-145); TOTAL CARBON DIOXIDE 28.2 MMOL/L (24-32); TOTAL PROTEIN 6.5 G/DL (6.4-8.2); eCRCL 70 ML/MIN; eGFR 79 ML/MIN
[2023-10-15 08:58] LABS: PLATELET ESTIMATE INCREASED; TOTAL CELLS COUNTED 100
[2023-10-15 09:45] VITALS: RESP 16; O2SAT 98
[2023-10-15 18:00] VITALS: BP 101/74; PULSE 73; RESP 16; TEMP 97.6; O2SAT 98
[2023-10-15 20:00] VITALS: RESP 16; O2SAT 98
[2023-10-15 22:00] VITALS: BP 117/74; PULSE 85; RESP 16; TEMP 98.2; O2SAT 96
[2023-10-16 06:00] VITALS: BP 123/78; PULSE 78; RESP 20; TEMP 98.5; O2SAT 97
[2023-10-16 06:30] VITALS: O2SAT 97
[2023-10-16 06:52] LABS: ALBUMIN 2.1 G/DL (3.4-5.0); ANION GAP 11 (8-16); BLOOD UREA NITROGEN 26 MG/DL (7-18); BUN/CREATININE RATIO 26.3 (10.0-20.0); CALCIUM 9.7 MG/DL (8.5-10.1); CHLORIDE 100 MMOL/L (99-107); CREATININE 0.99 MG/DL (0.60-1.10); GLUCOSE 260 MG/DL (70-104); MAGNESIUM 1.5 MG/DL (1.5-2.4); SODIUM 135 MMOL/L (135-145); TOTAL CARBON DIOXIDE 23.8 MMOL/L (24-32); eCRCL 72 ML/MIN; eGFR 82 ML/MIN
[2023-10-16 09:45] VITALS: RESP 18; O2SAT 97
[2023-10-16 10:00] VITALS: BP 107/69; PULSE 89; RESP 16; TEMP 98.4; O2SAT 95
[2023-10-16 20:00] VITALS: RESP 18; O2SAT 100
[2023-10-17 08:00] VITALS: BP 107/66; PULSE 65; RESP 16; RESP 20; TEMP 97.6; O2SAT 97
[2023-10-17 12:00] VITALS: BP 109/67; PULSE 70; RESP 16; TEMP 98; O2SAT 98
[2023-10-17 18:53] VITALS: RESP 16
[2023-10-18 08:00] VITALS: RESP 18; RESP 19; O2SAT 96; O2SAT 97
[2023-10-18 11:00] VITALS: BP 105/68; PULSE 68; RESP 14; TEMP 97; O2SAT 92
[2023-10-18 17:00] VITALS: BP 101/62; PULSE 59; RESP 18; TEMP 98; O2SAT 98
[2023-10-18 18:00] VITALS: TEMP 98
[2023-10-18 20:00] VITALS: RESP 18; O2SAT 98
[2023-10-19 06:40] LABS: MAGNESIUM 1.5 MG/DL (1.5-2.4)
[2023-10-19 08:00] VITALS: RESP 16; O2SAT 96
[2023-10-19 10:00] VITALS: BP 108/75; PULSE 67; RESP 16; TEMP 97.1; O2SAT 100
[2023-10-19 18:00] VITALS: BP 114/80; PULSE 68; RESP 17; TEMP 98.1; O2SAT 96
[2023-10-19 19:00] VITALS: RESP 17; O2SAT 96
[2023-10-19 22:00] VITALS: BP 110/67; PULSE 83; RESP 16; TEMP 98.3; O2SAT 96
[2023-10-19] MEDS: insulin glargine (Lantus) pen - multi-dose SQ SCH (22:01)
[2023-10-19] MEDS: insulin Lispro (HumaLOG) vial - multi-dose SQ STA (22:38)
[2023-10-20 06:04] VITALS: BP 115/88; PULSE 97; RESP 18; TEMP 98.6; O2SAT 93
[2023-10-20 08:00] VITALS: RESP 19
[2023-10-20] MEDS: HYDROcodone/acetaminophen 5mg/325mg tablet PO PRN (09:18)
[2023-10-20 10:00] VITALS: BP 110/75; PULSE 92; RESP 17; TEMP 97.9; O2SAT 97
[2023-10-20] MEDS: insulin Lispro (HumaLOG) vial - multi-dose SQ ONE (14:19)
[2023-10-20 18:00] VITALS: BP 107/71; PULSE 97; RESP 17; TEMP 98; O2SAT 98
[2023-10-20] MEDS: insulin Lispro (HumaLOG) vial - multi-dose SQ SCH (19:29)
[2023-10-20 20:00] VITALS: RESP 17; O2SAT 98
[2023-10-20 22:00] VITALS: BP 116/83; PULSE 96; RESP 16; TEMP 97.7; O2SAT 95
[2023-10-20] MEDS: insulin glargine (Lantus) pen - multi-dose SQ SCH (22:04)
[2023-10-21 06:00] VITALS: BP 93/57; PULSE 83; RESP 18; TEMP 98.2; O2SAT 96
[2023-10-21 08:30] LABS: BASOPHILS # (AUTO) 0.1 X10'3 (0-0.2); BASOPHILS % (AUTO) 0.8 % (0-1); EOSINOPHILS # (AUTO) 0.1 X10'3 (0-0.9); EOSINOPHILS % (AUTO) 1.7 % (0-6); HEMATOCRIT 32.7 % (42.0-52.0); LYMPHOCYTES # (AUTO) 2.3 X10'3 (1.1-4.8); LYMPHOCYTES % (AUTO) 32.2 % (21-51); MEAN CORPUSCULAR HEMOGLOBIN 28.5 PG (27.0-31.0); MEAN CORPUSCULAR HGB CONC 33.7 g/dL (33.0-36.5); MEAN CORPUSCULAR VOLUME 84.4 FL (78-98); MEAN PLATELET VOLUME 8.7 FL (7.4-10.4); MONOCYTES # (AUTO) 0.7 X10'3 (0-0.9); MONOCYTES % (AUTO) 9.7 % (2-12); NEUTROPHILS # (AUTO) 3.9 X10'3 (1.8-7.7); NEUTROPHILS % (AUTO) 55.6 % (42-75); PLATELET COUNT 412 X10'3 (140-440); RED BLOOD COUNT 3.87 X10'6 (4.70-6.10); RED CELL DISTRIBUTION WIDTH 14.3 % (11.5-14.5); WHITE BLOOD COUNT 7.1 X10'3 (4.5-11.0)
[2023-10-21 09:14] LABS: ALANINE AMINOTRANSFERASE 15 U/L (12-78); ALBUMIN 2.3 G/DL (3.4-5.0); ALBUMIN/GLOBULIN RATIO 0.6 (1.1-1.5); ALKALINE PHOSPHATASE 105 IU/L (46-116); ANION GAP 6 (8-16); ASPARTATE AMINO TRANSFERASE 16 U/L (10-37); BILIRUBIN,TOTAL 0.3 MG/DL (0.1-1.0); BLOOD UREA NITROGEN 31 MG/DL (7-18); BUN/CREATININE RATIO 27.7 (10.0-20.0); CALCIUM 9.5 MG/DL (8.5-10.1); CHLORIDE 95 MMOL/L (99-107); CREATININE 1.12 MG/DL (0.60-1.10); MAGNESIUM 1.6 MG/DL (1.5-2.4); POTASSIUM 5.7 MMOL/L (3.5-5.1); SODIUM 127 MMOL/L (135-145); TOTAL CARBON DIOXIDE 25.8 MMOL/L (24-32); TOTAL PROTEIN 6.4 G/DL (6.4-8.2); eCRCL 63 ML/MIN; eGFR 71 ML/MIN
[2023-10-21 09:17] LABS: GLUCOSE 514 MG/DL (70-104)
[2023-10-21 09:45] VITALS: RESP 16; O2SAT 96
[2023-10-21] MEDS: insulin Lispro (HumaLOG) vial - multi-dose SQ SCH ×2 (09:52→14:07)
[2023-10-21] MEDS: insulin Lispro (HumaLOG) vial - multi-dose SQ ONE (09:52)
[2023-10-21 10:00] VITALS: BP 105/62; PULSE 91; RESP 16; TEMP 97.8; O2SAT 94
[2023-10-21 13:30] LABS: BILIRUBIN,URINE NEGATIVE (Neg); CLARITY,URINE CLEAR (Clear); GLUCOSE, URINE >=1000 mg/dl (Neg); KETONES,URINE NEGATIVE (Neg); LEUKOCYTE ESTERASE ,URINE NEGATIVE (Neg); NITRITES, URINE NEGATIVE (Neg); OCCULT BLOOD,URINE NEGATIVE (Neg); PROTEIN,URINE NEGATIVE (Neg); UROBILINOGEN,URINE 0.2 E.U/dL (0.2-1.0)
[2023-10-21 13:32] LABS: COLOR,URINE STRAW (Yellow); UA COLLECTION TYPE NON-SPECIFIED
[2023-10-21 13:36] LABS: BACTERIA,URINE NONE SEEN /HPF (Neg); MUCUS STRANDS NONE SEEN /LPF (Neg); RBC,URINE 0-2 /HPF (0-2); SQUAMOUS EPITHELIAL CELL,UR FEW /LPF (FEW); WBC,URINE 0-4 /HPF (0-4)
[2023-10-21 18:00] VITALS: BP 111/67; PULSE 94; RESP 18; TEMP 98.2; O2SAT 98
[2023-10-21 20:00] VITALS: RESP 19; O2SAT 95
[2023-10-21 22:00] VITALS: BP 104/69; PULSE 88; RESP 16; TEMP 98.1; O2SAT 97
[2023-10-21] MEDS: insulin glargine (Lantus) pen - multi-dose SQ SCH (22:02)
[2023-10-22 06:00] VITALS: BP 98/61; PULSE 81; RESP 16; TEMP 98.6; O2SAT 97
[2023-10-22 07:00] VITALS: RESP 16
[2023-10-22 10:00] VITALS: BP 104/67; PULSE 88; RESP 16; TEMP 97.8; O2SAT 95
[2023-10-22 18:00] VITALS: BP 97/72; PULSE 83; RESP 16; TEMP 97.8; O2SAT 97
[2023-10-22 20:00] VITALS: RESP 16; O2SAT 97
[2023-10-22 22:00] VITALS: BP 104/66; PULSE 82; RESP 16; TEMP 97.8; O2SAT 96
[2023-10-23 06:00] VITALS: BP 111/74; PULSE 81; RESP 20; TEMP 97.5; O2SAT 96
[2023-10-23 09:06] LABS: ALBUMIN 2.5 G/DL (3.4-5.0); ANION GAP 9 (8-16); BLOOD UREA NITROGEN 32 MG/DL (7-18); BUN/CREATININE RATIO 38.1 (10.0-20.0); CALCIUM 9.7 MG/DL (8.5-10.1); CHLORIDE 103 MMOL/L (99-107); CREATININE 0.84 MG/DL (0.60-1.10); GLUCOSE 109 MG/DL (70-104); MAGNESIUM 1.6 MG/DL (1.5-2.4); POTASSIUM 4.2 MMOL/L (3.5-5.1); SODIUM 138 MMOL/L (135-145); eCRCL 84 ML/MIN; eGFR > 90 ML/MIN
[2023-10-23 10:00] VITALS: RESP 18; O2SAT 98
[2023-10-23 10:55] VITALS: BP 137/87; PULSE 66; RESP 16; TEMP 97.3; O2SAT 93
[2023-10-23 10:57] VITALS: BP 103/64; PULSE 73; RESP 16; TEMP 97.8; O2SAT 99
[2023-10-23] MEDS: DEXTROSE 15 GM of carb/4 tabs (each vial/BOTTLE has 4 tablets) PO PRN (13:25)
[2023-10-23 18:00] VITALS: BP 105/69; PULSE 83; RESP 14; TEMP 97.3; O2SAT 98
[2023-10-23 19:55] VITALS: RESP 16; O2SAT 98
[2023-10-24 05:59] LABS: ALBUMIN 2.5 G/DL (3.4-5.0); ANION GAP 8 (8-16); BLOOD UREA NITROGEN 31 MG/DL (7-18); BUN/CREATININE RATIO 29.8 (10.0-20.0); CALCIUM 9.8 MG/DL (8.5-10.1); CHLORIDE 103 MMOL/L (99-107); CREATININE 1.04 MG/DL (0.60-1.10); GLUCOSE 105 MG/DL (70-104); MAGNESIUM 1.6 MG/DL (1.5-2.4); POTASSIUM 4.1 MMOL/L (3.5-5.1); SODIUM 139 MMOL/L (135-145); eCRCL 68 ML/MIN; eGFR 77 ML/MIN
[2023-10-24 07:00] VITALS: BP 114/50; PULSE 82; RESP 14; TEMP 97.1; O2SAT 97
[2023-10-24 10:00] VITALS: BP 113/67; PULSE 82; RESP 16; TEMP 98.1; O2SAT 98
[2023-10-25 06:56] LABS: ALBUMIN 2.6 G/DL (3.4-5.0); ANION GAP 11 (8-16); BLOOD UREA NITROGEN 38 MG/DL (7-18); BUN/CREATININE RATIO 31.1 (10.0-20.0); CALCIUM 9.5 MG/DL (8.5-10.1); CHLORIDE 95 MMOL/L (99-107); CREATININE 1.22 MG/DL (0.60-1.10); MAGNESIUM 1.7 MG/DL (1.5-2.4); POTASSIUM 4.8 MMOL/L (3.5-5.1); SODIUM 129 MMOL/L (135-145); TOTAL CARBON DIOXIDE 23.1 MMOL/L (24-32); eCRCL 58 ML/MIN; eGFR 64 ML/MIN
[2023-10-25 06:59] LABS: GLUCOSE 531 MG/DL (70-104)
[2023-10-25] MEDS: insulin Lispro (HumaLOG) vial - multi-dose SQ ONE ×3 (08:02→22:54)
[2023-10-25 15:00] VITALS: BP 104/63; PULSE 100; RESP 14; TEMP 98.5; O2SAT 97
[2023-10-25 18:45] VITALS: BP 115/68; PULSE 93; RESP 16; TEMP 98.5; O2SAT 95
[2023-10-25 23:15] VITALS: BP 116/70; PULSE 88; RESP 14; TEMP 97.8; O2SAT 97
[2023-10-26 02:04] LABS: ALBUMIN 2.6 G/DL (3.4-5.0); ANION GAP 8 (8-16); BLOOD UREA NITROGEN 45 MG/DL (7-18); BUN/CREATININE RATIO 36.6 (10.0-20.0); CALCIUM 9.7 MG/DL (8.5-10.1); CHLORIDE 97 MMOL/L (99-107); CREATININE 1.23 MG/DL (0.60-1.10); GLUCOSE 365 MG/DL (70-104); MAGNESIUM 1.7 MG/DL (1.5-2.4); POTASSIUM 3.6 MMOL/L (3.5-5.1); SODIUM 129 MMOL/L (135-145); TOTAL CARBON DIOXIDE 23.6 MMOL/L (24-32); TRIGLYCERIDES 137 MG/DL (20-135); eCRCL 58 ML/MIN; eGFR 64 ML/MIN
[2023-10-26] MEDS: pantoprazole 40mg Tablet.DR PO SCH (07:37)
[2023-10-26 07:48] VITALS: RESP 16
[2023-10-26 10:00] VITALS: BP 94/70; PULSE 97; RESP 17; TEMP 97.5; O2SAT 97
[2023-10-26 20:00] VITALS: RESP 18; O2SAT 97
[2023-10-26] MEDS: insulin glargine (Lantus) pen - multi-dose SQ SCH (22:18)
[2023-10-27 05:52] VITALS: BP 118/68; PULSE 78; RESP 16; TEMP 98; O2SAT 96
[2023-10-27 08:00] VITALS: RESP 19
[2023-10-27 09:49] VITALS: BP 130/77; PULSE 100; RESP 16; TEMP 97.5; O2SAT 99
[2023-10-27 18:00] VITALS: BP 110/73; PULSE 85; RESP 16; TEMP 97.5; O2SAT 98
[2023-10-27 18:05] LABS: ALBUMIN 2.8 G/DL (3.4-5.0); ANION GAP 8 (8-16); BLOOD UREA NITROGEN 28 MG/DL (7-18); BUN/CREATININE RATIO 23.1 (10.0-20.0); CHLORIDE 103 MMOL/L (99-107); CREATININE 1.21 MG/DL (0.60-1.10); GLUCOSE 112 MG/DL (70-104); MAGNESIUM 1.6 MG/DL (1.5-2.4); POTASSIUM 4.8 MMOL/L (3.5-5.1); SODIUM 138 MMOL/L (135-145); TOTAL CARBON DIOXIDE 27.2 MMOL/L (24-32); eCRCL 58 ML/MIN; eGFR 65 ML/MIN
[2023-10-27 20:00] VITALS: RESP 18; O2SAT 97
[2023-10-27 22:00] VITALS: BP 132/82; PULSE 89; RESP 16; TEMP 98.4; O2SAT 99
[2023-10-28 07:00] VITALS: BP 122/79; PULSE 81; RESP 20; TEMP 98.4; O2SAT 99
[2023-10-28 08:00] VITALS: RESP 19
[2023-10-28 09:22] LABS: ALBUMIN 2.7 G/DL (3.4-5.0); ANION GAP 11 (8-16); BLOOD UREA NITROGEN 31 MG/DL (7-18); BUN/CREATININE RATIO 29.2 (10.0-20.0); CALCIUM 9.8 MG/DL (8.5-10.1); CHLORIDE 101 MMOL/L (99-107); CREATININE 1.06 MG/DL (0.60-1.10); GLUCOSE 323 MG/DL (70-104); MAGNESIUM 1.7 MG/DL (1.5-2.4); POTASSIUM 4.6 MMOL/L (3.5-5.1); SODIUM 136 MMOL/L (135-145); TOTAL CARBON DIOXIDE 24.2 MMOL/L (24-32); eCRCL 67 ML/MIN; eGFR 76 ML/MIN
[2023-10-28 10:00] VITALS: BP 128/73; PULSE 82; RESP 16; TEMP 97.8; O2SAT 97
[2023-10-28 18:00] VITALS: BP 107/67; PULSE 61; RESP 16; TEMP 97.8; O2SAT 99
[2023-10-28 20:00] VITALS: RESP 16; O2SAT 99
[2023-10-28] MEDS: miconazole nitrate 28.35 gm derm cream TP SCH (21:05)
[2023-10-28 22:00] VITALS: BP 125/76; PULSE 92; RESP 18; TEMP 99.2; O2SAT 98
[2023-10-29 06:44] VITALS: BP 116/69; PULSE 82; RESP 18; TEMP 97.5; O2SAT 99
[2023-10-29 08:00] VITALS: RESP 18
[2023-10-29 18:00] VITALS: BP 116/80; PULSE 59; RESP 16; TEMP 98; O2SAT 98
[2023-10-29 20:00] VITALS: RESP 15; O2SAT 98
[2023-10-29] MEDS: traZODone 50mg tablet PO SCH (20:17)
[2023-10-29] MEDS: insulin glargine (Lantus) pen - multi-dose SQ SCH (20:56)
[2023-10-29 22:00] VITALS: BP 114/80; PULSE 91; RESP 20; TEMP 97.7; O2SAT 99
[2023-10-30 06:00] VITALS: BP 115/70; PULSE 83; RESP 18; TEMP 97.6; O2SAT 97
[2023-10-30 08:00] VITALS: RESP 16
[2023-10-30] MEDS: celeCOXIB 100mg capsule PO SCH (08:00)
[2023-10-30 10:00] VITALS: BP 109/54; PULSE 83; RESP 18; TEMP 99; O2SAT 97
[2023-10-30 15:26] VITALS: RESP 17; O2SAT 96
[2023-10-30 18:00] VITALS: BP 114/74; PULSE 91; RESP 18; TEMP 97.9; O2SAT 97
[2023-10-30 20:00] VITALS: RESP 18; O2SAT 97
[2023-10-31 02:31] VITALS: O2SAT 97
[2023-10-31 06:55] VITALS: BP 97/65; PULSE 83; RESP 12; TEMP 97.8; O2SAT 98
[2023-10-31 08:00] VITALS: RESP 18
[2023-10-31 11:00] VITALS: BP 102/70; PULSE 93; RESP 16; TEMP 97.9; O2SAT 95
[2023-10-31 19:15] VITALS: RESP 19; O2SAT 97
[2023-10-31 22:00] VITALS: BP 105/65; PULSE 104; RESP 14; TEMP 98.1; O2SAT 97
[2023-11-01] MEDS: temazepam 15mg capsule PO ONE (01:47)
[2023-11-01 02:37] VITALS: BP 100/76; PULSE 98; RESP 16; TEMP 98.4; O2SAT 97
[2023-11-01 02:51] VITALS: O2SAT 97
[2023-11-01 08:00] VITALS: RESP 19
[2023-11-01 18:00] VITALS: BP 106/74; PULSE 74; RESP 16; TEMP 97.9; O2SAT 97
[2023-11-02 08:00] VITALS: RESP 19
[2023-11-02 11:00] VITALS: BP 110/76; PULSE 103; RESP 16; TEMP 97.3; O2SAT 96
[2023-11-02 18:00] VITALS: BP 116/80; PULSE 99; RESP 18; TEMP 98; O2SAT 98
[2023-11-02 20:00] VITALS: RESP 14; O2SAT 97
[2023-11-02] MEDS: insulin glargine (Lantus) pen - multi-dose SQ SCH (21:41)
[2023-11-02 22:00] VITALS: BP 114/73; PULSE 85; RESP 14; TEMP 97.7; O2SAT 97
[2023-11-03 06:36] VITALS: BP 113/80; PULSE 93; RESP 14; TEMP 98.7; O2SAT 100
[2023-11-03 08:00] VITALS: RESP 19
[2023-11-03] MEDS ORDERED: PREG150C47 PO (10:00)
[2023-11-03] MEDS ORDERED: PREG75CA76 PO (10:00)
[2023-11-03] MEDS ORDERED: FLUO-1 (10:00)
[2023-11-03] MEDS ORDERED: FLUO40CA (10:00)
[2023-11-03] MEDS ORDERED: DULA0.75 SQ (10:00)
[2023-11-03] MEDS ORDERED: METF-438 PO (10:00)
[2023-11-03] MEDS ORDERED: GABA300T28 (10:00)
[2023-11-03 19:00] VITALS: RESP 19
[2023-11-03 19:08] VITALS: BP 104/65; PULSE 103; RESP 17; TEMP 97.7; O2SAT 97
[2023-11-03] MEDS ORDERED: pregabalin 75mg capsule PO SCH (20:00)
[2023-11-03] MEDS: ROSUVASTATIN CALCIUM 5 MG TABLET PO SCH (20:42)
[2023-11-03] MEDS: pregabalin 75mg capsule PO SCH (20:45)
[2023-11-04 08:00] VITALS: RESP 18
[2023-11-04] MEDS ORDERED: pantoprazole 40mg Tablet.DR PO SCH (08:00)
[2023-11-04 10:00] VITALS: BP 138/65; PULSE 54; RESP 16; TEMP 97.3; O2SAT 98
[2023-11-04 18:00] VITALS: BP 134/62; PULSE 55; RESP 16; TEMP 97.6; O2SAT 99
[2023-11-04 20:00] VITALS: RESP 18; O2SAT 97
[2023-11-04 22:00] VITALS: BP 104/62; PULSE 90; RESP 16; TEMP 97.6; O2SAT 98
[2023-11-05 06:00] VITALS: BP 108/71; PULSE 91; RESP 18; TEMP 97; O2SAT 95
[2023-11-05 07:36] VITALS: RESP 18; O2SAT 95
[2023-11-05] MEDS: insulin regular, human 10 units/0.1 ml syringe SQ ONE (08:15)
[2023-11-05 11:00] VITALS: BP 112/74; PULSE 96; RESP 18; TEMP 97; O2SAT 99
[2023-11-05] MEDS: INSULIN LISPRO 100 UNIT/ML INSULN.PEN MULTI-DOSE SQ SCH ×3 (13:30→18:59)
[2023-11-05] MEDS: psyllium seed 5.8 gm packet (sugar-free) PO ONE (16:27)
[2023-11-05 18:00] VITALS: BP 101/57; PULSE 85; RESP 16; TEMP 98.4; O2SAT 99
[2023-11-05 20:00] VITALS: RESP 20; O2SAT 95
[2023-11-05] MEDS ORDERED: psyllium seed 5.8 gm packet (sugar-free) PO SCH (21:00)
[2023-11-05 22:00] VITALS: BP 111/68; PULSE 96; RESP 18; TEMP 98.7; O2SAT 96
[2023-11-06 06:00] VITALS: BP 102/68; PULSE 88; RESP 18; TEMP 97.6; O2SAT 96
[2023-11-06 07:17] VITALS: RESP 18; O2SAT 96
[2023-11-06] MEDS: INSULIN LISPRO 100 UNIT/ML INSULN.PEN MULTI-DOSE SQ SCH (09:20)
[2023-11-06] MEDS: loperamide 2mg capsule PO PRN (09:22)
[2023-11-06 10:00] VITALS: BP 99/69; PULSE 91; RESP 16; TEMP 97.3; O2SAT 97
[2023-11-06 18:00] VITALS: BP 108/75; PULSE 88; RESP 16; TEMP 98.5; O2SAT 99
[2023-11-06 19:40] VITALS: RESP 16; O2SAT 99
[2023-11-06] MEDS: psyllium seed 5.8 gm packet (sugar-free) PO SCH (21:36)
[2023-11-06 22:00] VITALS: BP 110/77; PULSE 96; RESP 16; TEMP 97.1; O2SAT 96
[2023-11-07 06:00] VITALS: BP 118/77; PULSE 88; RESP 18; TEMP 97.3; O2SAT 97
[2023-11-07 08:00] VITALS: RESP 19
[2023-11-07 10:53] VITALS: BP 112/75; PULSE 109; RESP 20; TEMP 97.8; O2SAT 97
[2023-11-07 18:00] VITALS: BP 101/69; PULSE 94; RESP 16; TEMP 98.6; O2SAT 97
[2023-11-07 18:41] LABS: C DIFF ANTIGEN NEGATIVE (NEGATIVE); C DIFF SPECIMEN=DIARRHEA? ACCEPTABLE; C DIFFICILE TOXINS A&B NEGATIVE (Neg)
[2023-11-07 20:00] VITALS: RESP 16; O2SAT 97
[2023-11-07 22:00] VITALS: BP 117/76; PULSE 94; RESP 14; TEMP 97.8; O2SAT 96
[2023-11-08 07:00] VITALS: BP 111/71; PULSE 89; RESP 16; TEMP 97.2; O2SAT 96
[2023-11-08 10:00] VITALS: BP 92/59; PULSE 101; RESP 17; RESP 19; TEMP 97; O2SAT 98
[2023-11-08] MEDS: loperamide 2mg capsule PO SCH (11:56)
[2023-11-08] MEDS: pantoprazole 40MG/NS 100ML BAG 100 ML IV SCH (13:20)
[2023-11-08 14:56] LABS: OCCULT BLOOD STOOL POSITIVE (Neg)
[2023-11-08 18:00] VITALS: BP 104/66; PULSE 92; RESP 16; TEMP 97.5; O2SAT 100
[2023-11-08 20:00] VITALS: RESP 19; O2SAT 100
[2023-11-09 06:53] VITALS: BP 110/69; PULSE 78; RESP 14; TEMP 97.3; O2SAT 97
[2023-11-09 08:30] VITALS: RESP 19; O2SAT 96
[2023-11-09 11:00] VITALS: BP 100/62; PULSE 94; RESP 16; TEMP 98.4; O2SAT 96
[2023-11-09 18:00] VITALS: BP 116/74; PULSE 98; RESP 16; TEMP 98.2; O2SAT 96
[2023-11-09 20:00] VITALS: RESP 16; O2SAT 96
[2023-11-09] MEDS: pantoprazole 40mg Tablet.DR PO SCH (20:28)
[2023-11-09 22:00] VITALS: BP 110/77; PULSE 97; RESP 16; TEMP 98.7; O2SAT 97
[2023-11-10 10:00] VITALS: BP 94/58; PULSE 102; RESP 14; TEMP 98.1; O2SAT 98
[2023-11-10] MEDS: insulin glargine (Lantus) pen - multi-dose SQ SCH (12:12)
[2023-11-10 17:53] LABS: BASOPHILS # (AUTO) 0.1 X10'3 (0-0.2); BASOPHILS % (AUTO) 0.9 % (0-1); EOSINOPHILS # (AUTO) 0.1 X10'3 (0-0.9); EOSINOPHILS % (AUTO) 2.1 % (0-6); HEMATOCRIT 36.4 % (42.0-52.0); HEMOGLOBIN 12.1 g/dl (14.0-17.9); LYMPHOCYTES # (AUTO) 1.9 X10'3 (1.1-4.8); LYMPHOCYTES % (AUTO) 28.2 % (21-51); MEAN CORPUSCULAR HEMOGLOBIN 28.4 PG (27.0-31.0); MEAN CORPUSCULAR HGB CONC 33.3 g/dL (33.0-36.5); MEAN CORPUSCULAR VOLUME 85.4 FL (78-98); MEAN PLATELET VOLUME 9.8 FL (7.4-10.4); MONOCYTES # (AUTO) 0.6 X10'3 (0-0.9); MONOCYTES % (AUTO) 9.2 % (2-12); NEUTROPHILS # (AUTO) 3.9 X10'3 (1.8-7.7); NEUTROPHILS % (AUTO) 59.6 % (42-75); PLATELET COUNT 398 X10'3 (140-440); RED BLOOD COUNT 4.26 X10'6 (4.70-6.10); RED CELL DISTRIBUTION WIDTH 15.3 % (11.5-14.5); WHITE BLOOD COUNT 6.6 X10'3 (4.5-11.0)
[2023-11-10 18:00] VITALS: BP 111/69; PULSE 95; RESP 14; TEMP 98.4; O2SAT 94
[2023-11-10 18:11] LABS: ALANINE AMINOTRANSFERASE 24 U/L (12-78); ALBUMIN 2.9 G/DL (3.4-5.0); ALBUMIN/GLOBULIN RATIO 0.6 (1.1-1.5); ALKALINE PHOSPHATASE 120 IU/L (46-116); ANION GAP 11 (8-16); ASPARTATE AMINO TRANSFERASE 13 U/L (10-37); BILIRUBIN,TOTAL 0.3 MG/DL (0.1-1.0); BLOOD UREA NITROGEN 27 MG/DL (7-18); BUN/CREATININE RATIO 31.4 (10.0-20.0); CALCIUM 10.2 MG/DL (8.5-10.1); CHLORIDE 97 MMOL/L (99-107); CREATININE 0.86 MG/DL (0.60-1.10); GLUCOSE 271 MG/DL (70-104); SODIUM 133 MMOL/L (135-145); TOTAL CARBON DIOXIDE 25.2 MMOL/L (24-32); TOTAL PROTEIN 7.4 G/DL (6.4-8.2); eCRCL 82 ML/MIN; eGFR > 90 ML/MIN
[2023-11-10 20:00] VITALS: RESP 14; O2SAT 94
[2023-11-10 22:00] VITALS: BP 112/73; PULSE 95; RESP 16; TEMP 99; O2SAT 97
[2023-11-11 06:22] VITALS: BP 105/71; PULSE 87; RESP 16; TEMP 98.2; O2SAT 97
[2023-11-11 10:00] VITALS: BP 110/70; PULSE 99; RESP 16; TEMP 98.6; O2SAT 98
[2023-11-11 18:00] VITALS: BP 99/56; PULSE 94; RESP 15; TEMP 98.3; O2SAT 98
[2023-11-11 20:07] VITALS: RESP 15; O2SAT 98
[2023-11-12 06:00] VITALS: BP 100/63; PULSE 87; RESP 16; TEMP 98.7; O2SAT 97
[2023-11-12 08:20] VITALS: RESP 16
[2023-11-12] MEDS: LORazepam 0.5 MG tablet PO PRN (16:33)
[2023-11-12 18:00] VITALS: BP 118/86; PULSE 105; RESP 16; TEMP 98.1; O2SAT 99
[2023-11-12 20:00] VITALS: RESP 16; O2SAT 96
[2023-11-12 22:00] VITALS: BP 96/62; PULSE 91; RESP 20; TEMP 97.9; O2SAT 98
[2023-11-13 06:40] VITALS: BP 94/61; PULSE 86; RESP 20; TEMP 97.9; O2SAT 98
[2023-11-13 08:00] VITALS: RESP 16
[2023-11-13 18:00] VITALS: BP 108/71; PULSE 82; RESP 16; TEMP 97.5; O2SAT 100
[2023-11-13 20:00] VITALS: RESP 16
[2023-11-14 06:00] VITALS: BP 107/57; PULSE 73; RESP 16; TEMP 97.3; O2SAT 97
[2023-11-14 07:30] VITALS: RESP 16
[2023-11-14 08:00] VITALS: RESP 16; O2SAT 98
[2023-11-14 10:00] VITALS: BP 95/62; PULSE 73; RESP 16; TEMP 98.3; O2SAT 96
[2023-11-14] MEDS ORDERED: METF-1203 PO (10:17)
[2023-11-14 18:00] VITALS: BP_SYST 103; BP_SYST 110; BP_DIAS 56; BP_DIAS 72; PULSE 80; RESP 16; TEMP 97.8; TEMP 97.9; O2SAT 95; O2SAT 96
[2023-11-14 20:00] VITALS: RESP 16; O2SAT 95
[2023-11-15 06:00] VITALS: BP 108/69; PULSE 75; RESP 14; TEMP 97.3; O2SAT 94
[2023-11-15 08:00] VITALS: RESP 19; O2SAT 96
[2023-11-15 11:00] VITALS: BP 108/71; PULSE 70; RESP 15; TEMP 98.1
[2023-11-15 18:00] VITALS: BP 99/60; PULSE 91; RESP 16; TEMP 97.8; O2SAT 98
[2023-11-15 20:00] VITALS: RESP 16; O2SAT 98
[2023-11-16] MEDS ORDERED: morphine 2 MG/ML inj. syringe IV PRN (03:15)
[2023-11-16 06:00] VITALS: PULSE 75; RESP 17; TEMP 97.6; O2SAT 97
[2023-11-16 08:10] VITALS: RESP 16
[2023-11-16 11:00] VITALS: BP 122/85; PULSE 79; RESP 17; TEMP 98.2; O2SAT 98
[2023-11-16] MEDS: cephalexin 500mg capsule PO SCH (11:17)
[2023-11-16 18:00] VITALS: BP 107/68; PULSE 99; RESP 16; TEMP 98.4; O2SAT 98
[2023-11-16 20:00] VITALS: RESP 16; O2SAT 98
[2023-11-16 22:00] VITALS: BP 112/75; PULSE 98; RESP 16; TEMP 98.7; O2SAT 97
[2023-11-17 06:39] VITALS: BP 101/69; PULSE 92; RESP 16; TEMP 98.8; O2SAT 97
[2023-11-17 07:05] VITALS: RESP 16; O2SAT 97
[2023-11-17] MEDS: CHLORHEXIDINE GLUCONATE 4% 15 ML topical sol TP SCH (13:31)
[2023-11-17 18:00] VITALS: BP 121/82; PULSE 111; RESP 20; TEMP 98.1; O2SAT 98
[2023-11-17 20:00] VITALS: RESP 20; O2SAT 98
[2023-11-17] MEDS: gentamicin 0.1% topical ointment 15gm TP SCH (21:39)
[2023-11-17] MEDS: mupirocin 2% ointment 22GM TP SCH (21:50)
[2023-11-17 22:00] VITALS: BP 107/72; PULSE 110; RESP 16; TEMP 98.9; O2SAT 97
[2023-11-18 06:00] VITALS: BP 102/64; PULSE 103; RESP 16; TEMP 98.9; O2SAT 98
[2023-11-18 07:30] VITALS: RESP 16
[2023-11-18 18:00] VITALS: BP 117/66; PULSE 75; RESP 18; TEMP 97.6; O2SAT 96
[2023-11-18 20:00] VITALS: RESP 18; O2SAT 96
[2023-11-19 14:00] VITALS: BP 98/57; PULSE 86; RESP 18; TEMP 97.6; O2SAT 99
[2023-11-19 18:00] VITALS: BP 97/57; PULSE 66; RESP 18; TEMP 98.4; O2SAT 97
[2023-11-19 20:00] VITALS: RESP 18; O2SAT 97
[2023-11-20] MEDS ORDERED: haloperidol lactate 5mg/ml inj IM PRN (07:50)
[2023-11-20] MEDS ORDERED: LORazepam 1 MG tablet PO PRN (07:50)
[2023-11-20 08:00] VITALS: RESP 16
[2023-11-20] MEDS: haloperidol 5mg tablet PO PRN (08:54)
[2023-11-20 12:35] VITALS: BP 99/67; PULSE 113; RESP 20; TEMP 98.4; O2SAT 97
[2023-11-20 18:00] VITALS: BP 110/69; PULSE 100; RESP 18; TEMP 97.7; O2SAT 97
[2023-11-20 20:30] VITALS: RESP 18
[2023-11-21 08:00] VITALS: RESP 16
[2023-11-21 12:21] VITALS: BP 107/68; PULSE 107; RESP 18; TEMP 97.9; O2SAT 99
[2023-11-21] MEDS ORDERED: LORazepam 0.5 MG tablet PO PRN (13:00)
[2023-11-21] MEDS ORDERED: LORazepam 2 mg/ml vial IV PRN (13:00)
[2023-11-21] MEDS: pregabalin 75mg capsule PO SCH (13:00)
[2023-11-21 18:00] VITALS: BP 114/77; PULSE 89; RESP 14; TEMP 97.4; O2SAT 99
[2023-11-22 02:40] VITALS: RESP 16
== END 2023-11-22 17:15 | disposition home health service (06) | DRG 720 ==
LOC: ER 11:45 → ED HOLD 16:40 → CICU 2S 17:27 → SUR 3N 10-02 18:55
PROVIDERS: ADMIT Internal Medicine Critical Care Medicine; ATTEND Internal Medicine Critical Care Medicine
PROC: 02HV33Z Insertion of Infusion Device into Superior Vena Cava, Percutaneous Approach (ICD-10-PCS; principal; 2023-09-26)
PROC: B548ZZA Ultrasonography of Superior Vena Cava, Guidance (ICD-10-PCS; 2023-09-26)
PROC: 5A09357 Assistance with Respiratory Ventilation, Less than 24 Consecutive Hours, Continuous Positive Airway Pressure (ICD-10-PCS; 2023-09-26)
PROC: 5A1955Z Respiratory Ventilation, Greater than 96 Consecutive Hours (ICD-10-PCS; 2023-09-27)
PROC: 0BH17EZ Insertion of Endotracheal Airway into Trachea, Via Natural or Artificial Opening (ICD-10-PCS; 2023-09-27)
PROC: 0W9930Z Drainage of Right Pleural Cavity with Drainage Device, Percutaneous Approach (ICD-10-PCS; 2023-09-30)
DX: A41.9 Sepsis, unspecified organism (principal); N17.0 Acute kidney failure with tubular necrosis; J80 Acute respiratory distress syndrome; J69.0 Pneumonitis due to inhalation of food and vomit; E10.11 Type 1 diabetes mellitus with ketoacidosis with coma; R65.21 Severe sepsis with septic shock; D69.6 Thrombocytopenia, unspecified; E83.39 Other disorders of phosphorus metabolism; Z66 Do not resuscitate; J15.9 Unspecified bacterial pneumonia; M62.82 Rhabdomyolysis; F32.A Depression, unspecified; E87.6 Hypokalemia; J91.8 Pleural effusion in other conditions classified elsewhere; E87.1 Hypo-osmolality and hyponatremia; R10.2 Pelvic and perineal pain; K62.89 Other specified diseases of anus and rectum; G47.00 Insomnia, unspecified; M26.602 Left temporomandibular joint disorder, unspecified; L73.9 Follicular disorder, unspecified; F10.20 Alcohol dependence, uncomplicated; Y90.9 Presence of alcohol in blood, level not specified; Z53.20 Procedure and treatment not carried out because of patient's decision for unspecified reasons; Z79.4 Long term (current) use of insulin; Z79.84 Long term (current) use of oral hypoglycemic drugs; Z79.899 Other long term (current) drug therapy; Z87.820 Personal history of traumatic brain injury; Z91.119 Patient's noncompliance with dietary regimen due to unspecified reason; Z91.199 Patient's noncompliance with other medical treatment and regimen due to unspecified reason
CPT/HCPCS: 36415; 36600; 70450; 71045; 74018; 80048; 80053; 80076; 80305; 80346; 81001; 82272; 82550; 82803; 82948; 83036; 83605; 83690; 83735; 84100; 84132; 84134; 84145; 84478; 84484; 85007; 85018; 85025; 85610; 85730; 87040; 87045; 87046; 87070; 87081; 87324; 87449; 92508; 92616; 93005; 94003; 94660; 94664; 94668; 94760; 96365; 96367; 97116; 97161; 97530; 97535; 99291; A4333; A4615; A4624; A4649; A5200; A6212; A6213; A6223; A6250; A6258; A6446; A6449; A6590; A7048; A9900; C1751; C9113; G0378; J0696; J1610; J1644; J1650; J1652; J1815; J1956; J2060; J2270; J2543; J2704; J3010; J3370; J3475; J3480; J3490; J7030; J7040; J7060; J7070; J7120

== ENCOUNTER 2023-11-30 21:50 | Inpatient (IN) | payer MEDICAID ==
[~2023-11-30] VITALS: Ht 177.8 cm; Wt 59.4 kg
[~2023-11-30 21:50] MED LIST: DULA0.75 SQ; FLUO-1; METF-1203 PO; PREG75CA76 PO; ROSU10TA28 PO
[2023-11-30] MEDS: ondansetron/PF 4mg/2ml inj IV ONE (22:28)
[2023-11-30] MEDS: normal saline 1000ML IV soln IVB ONE (22:31)
[2023-11-30 22:55] LABS: BILIRUBIN,URINE NEGATIVE (Neg); CLARITY,URINE CLEAR (Clear); COLOR,URINE STRAW (Yellow); GLUCOSE, URINE >=1000 mg/dl (Neg); KETONES,URINE TRACE mg/dl (Neg); LEUKOCYTE ESTERASE ,URINE NEGATIVE (Neg); NITRITES, URINE NEGATIVE (Neg); OCCULT BLOOD,URINE NEGATIVE (Neg); PH,URINE 5.5 (4.8-8.0); PROTEIN,URINE NEGATIVE (Neg); UROBILINOGEN,URINE 0.2 E.U/dL (0.2-1.0)
[2023-11-30 22:58] LABS: UA COLLECTION TYPE VOIDED
[2023-11-30 23:02] LABS: BACTERIA,URINE FEW /HPF (Neg); RBC,URINE 0-2 /HPF (0-2); WBC,URINE 0-4 /HPF (0-4)
[2023-11-30 23:03] LABS: MUCUS STRANDS NONE SEEN /LPF (Neg); SQUAMOUS EPITHELIAL CELL,UR NONE SEEN /LPF (FEW)
[2023-11-30 23:08] LABS: BASOPHILS # (AUTO) 0.2 X10'3 (0-0.2); BASOPHILS % (AUTO) 1.5 % (0-1); EOSINOPHILS # (AUTO) 0.2 X10'3 (0-0.9); EOSINOPHILS % (AUTO) 1.3 % (0-6); HEMATOCRIT 31.8 % (42.0-52.0); HEMOGLOBIN 10.6 g/dl (14.0-17.9); LYMPHOCYTES # (AUTO) 2.5 X10'3 (1.1-4.8); LYMPHOCYTES % (AUTO) 20.7 % (21-51); MEAN CORPUSCULAR HEMOGLOBIN 28.1 PG (27.0-31.0); MEAN CORPUSCULAR HGB CONC 33.2 g/dL (33.0-36.5); MEAN CORPUSCULAR VOLUME 84.6 FL (78-98); MONOCYTES # (AUTO) 0.9 X10'3 (0-0.9); MONOCYTES % (AUTO) 7.2 % (2-12); NEUTROPHILS # (AUTO) 8.3 X10'3 (1.8-7.7); NEUTROPHILS % (AUTO) 69.3 % (42-75); PLATELET COUNT 336 X10'3 (140-440); RED BLOOD COUNT 3.76 X10'6 (4.70-6.10); RED CELL DISTRIBUTION WIDTH 15.4 % (11.5-14.5)
[2023-11-30 23:26] LABS: ALANINE AMINOTRANSFERASE 48 U/L (12-78); ALBUMIN/GLOBULIN RATIO 0.8 (1.1-1.5); ALKALINE PHOSPHATASE 128 IU/L (46-116); ANION GAP 13 (8-16); ASPARTATE AMINO TRANSFERASE 41 U/L (10-37); BILIRUBIN,TOTAL 0.5 MG/DL (0.1-1.0); BLOOD UREA NITROGEN 27 MG/DL (7-18); CALCIUM 9.3 MG/DL (8.5-10.1); CHLORIDE 97 MMOL/L (99-107); CREATININE 0.87 MG/DL (0.60-1.10); POTASSIUM 3.7 MMOL/L (3.5-5.1); SODIUM 130 MMOL/L (135-145); TOTAL CARBON DIOXIDE 19.7 MMOL/L (24-32); TOTAL PROTEIN 6.7 G/DL (6.4-8.2); eCRCL 106 ML/MIN; eGFR > 90 ML/MIN
[2023-11-30 23:29] LABS: GLUCOSE 578 MG/DL (70-104)
[2023-12-01] MEDS: insulin regular, human 10 units/0.1 ml syringe IV ONE ×3 (00:42→04:22)
[2023-12-01] MEDS: potassium Cl 20 mEq SR tablet PO STA (00:42)
[2023-12-01] MEDS: normal saline 1000ml 1,000 ML IV ONE (02:59)
[2023-12-01] MEDS: insulin regular, human 10 units/0.1 ml syringe SQ ONE (13:24)
[2023-12-01] MEDS ORDERED: potassium Cl 40MEQ/1/2NS 520ml 520 ML IV PRN (16:05)
[2023-12-01] MEDS ORDERED: docusate sod 100mg capsule PO PRN (16:05)
[2023-12-01] MEDS ORDERED: magnesium hydroxide 30ml (MOM) UD suspension PO PRN (16:05)
[2023-12-01] MEDS ORDERED: DEXTROSE 15 GM of carb/4 tabs (each vial/BOTTLE has 4 tablets) PO PRN (16:05)
[2023-12-01] MEDS ORDERED: ondansetron/PF 4mg/2ml inj IV PRN (16:05)
[2023-12-01] MEDS ORDERED: mag hydrox/Alum hydrox/simeth 30ml oral suspension PO PRN (16:05)
[2023-12-01] MEDS ORDERED: magnesium Cl slow-release 64mg tablet PO PRN (16:05)
[2023-12-01] MEDS ORDERED: acetaminophen 325mg tablet PO PRN (16:05)
[2023-12-01] MEDS ORDERED: glucagon, human recombinant 1mg kit SUBCUT PRN (16:05)
[2023-12-01] MEDS ORDERED: dextrose 50%-water 50ml dispensing syringe IV PRN (16:05)
[2023-12-01] MEDS ORDERED: potassium Cl 20 mEq SR tablet PO PRN (16:05)
[2023-12-01] MEDS ORDERED: magnesium 4gm in 100ml NS 100 ML IV PRN (16:05)
[2023-12-01 17:31] LABS: ACETONE NEGATIVE (NEGATIVE)
[2023-12-01 17:40] LABS: ABG BASE EXCESS -2.7 mmol/L (-2.0-2.0); ABG HCO3 20.3 mmol/L (22.0-26.0); ABG OXYGEN SATURATION 96.7 % (94-97); ABG PCO2 (T) 29.8 mmHg (35.0-48.0); ABG PH (T) 7.452 (7.340-7.440); ALLEN'S TEST POSITIVE; FCOHb 0.3 % (0.0-3.9); FHHb 3.3 % (0.0-5.0); FMetHb 0.1 % (0.0-1.5); FO2Hb 96.3 % (94-97); MODE RA; TOTAL HEMOGLOBIN 11.4 G/dl (14.0-17.9)
[2023-12-01] MEDS: INSULIN LISPRO 100 UNIT/ML INSULN.PEN MULTI-DOSE SQ SCH (19:03)
[2023-12-01 19:10] VITALS: BP 116/71; PULSE 76; RESP 15; TEMP 97.9; O2SAT 99
[2023-12-01] MEDS: normal saline 1000ml 1,000 ML IV SCH (19:27)
[2023-12-01] MEDS: heparin, porcine 5000 units/ml vial SQ SCH (21:30)
[2023-12-01] MEDS: insulin glargine (Lantus) pen - multi-dose SQ SCH (21:34)
[2023-12-01 22:00] VITALS: BP 106/67; PULSE 79; RESP 16; TEMP 98; O2SAT 99
[2023-12-02 07:55] LABS: BASOPHILS # (AUTO) 0.1 X10'3 (0-0.2); BASOPHILS % (AUTO) 0.9 % (0-1); EOSINOPHILS # (AUTO) 0.3 X10'3 (0-0.9); EOSINOPHILS % (AUTO) 4.4 % (0-6); HEMATOCRIT 32.2 % (42.0-52.0); HEMOGLOBIN 10.7 g/dl (14.0-17.9); LYMPHOCYTES # (AUTO) 2.5 X10'3 (1.1-4.8); MEAN CORPUSCULAR HGB CONC 33.3 g/dL (33.0-36.5); MEAN CORPUSCULAR VOLUME 84.2 FL (78-98); MEAN PLATELET VOLUME 8.9 FL (7.4-10.4); MONOCYTES # (AUTO) 0.4 X10'3 (0-0.9); MONOCYTES % (AUTO) 6.1 % (2-12); NEUTROPHILS # (AUTO) 3.8 X10'3 (1.8-7.7); NEUTROPHILS % (AUTO) 53.6 % (42-75); PLATELET COUNT 349 X10'3 (140-440); RED BLOOD COUNT 3.82 X10'6 (4.70-6.10); RED CELL DISTRIBUTION WIDTH 15.7 % (11.5-14.5); WHITE BLOOD COUNT 7.1 X10'3 (4.5-11.0)
[2023-12-02 08:00] VITALS: RESP 16; O2SAT 98
[2023-12-02 08:34] LABS: ALANINE AMINOTRANSFERASE 37 U/L (12-78); ALBUMIN 2.9 G/DL (3.4-5.0); ALBUMIN/GLOBULIN RATIO 0.8 (1.1-1.5); ALKALINE PHOSPHATASE 109 IU/L (46-116); ANION GAP 8 (8-16); ASPARTATE AMINO TRANSFERASE 12 U/L (10-37); BILIRUBIN,TOTAL 0.4 MG/DL (0.1-1.0); BLOOD UREA NITROGEN 12 MG/DL (7-18); CALCIUM 9.3 MG/DL (8.5-10.1); CHLORIDE 106 MMOL/L (99-107); CREATININE 0.75 MG/DL (0.60-1.10); GLUCOSE 266 MG/DL (70-104); MAGNESIUM 1.9 MG/DL (1.5-2.4); SODIUM 138 MMOL/L (135-145); TOTAL CARBON DIOXIDE 24.2 MMOL/L (24-32); TOTAL PROTEIN 6.6 G/DL (6.4-8.2); eCRCL 123 ML/MIN; eGFR > 90 ML/MIN
[2023-12-02] MEDS: metoclopramide 5 mg/ml inj IV ONE (15:26)
[2023-12-02] MEDS: INSULIN LISPRO 100 UNIT/ML INSULN.PEN MULTI-DOSE SQ SCH (17:39)
[2023-12-02 18:00] VITALS: BP 127/79; PULSE 64; RESP 18; TEMP 97.7; O2SAT 99
[2023-12-02 20:00] VITALS: RESP 18; O2SAT 97
[2023-12-02] MEDS: atorvastatin 20mg tablet PO SCH (21:00)
[2023-12-02] MEDS: pregabalin 75mg capsule PO SCH (21:01)
[2023-12-02 22:00] VITALS: BP 126/81; PULSE 82; RESP 18; TEMP 98.1; O2SAT 97
[2023-12-03 06:00] VITALS: BP 108/62; PULSE 75; RESP 16; TEMP 97.7; O2SAT 99
[2023-12-03 06:43] LABS: BASOPHILS # (AUTO) 0.1 X10'3 (0-0.2); BASOPHILS % (AUTO) 0.7 % (0-1); EOSINOPHILS # (AUTO) 0.3 X10'3 (0-0.9); EOSINOPHILS % (AUTO) 3.2 % (0-6); HEMATOCRIT 31.5 % (42.0-52.0); HEMOGLOBIN 10.5 g/dl (14.0-17.9); LYMPHOCYTES # (AUTO) 2.7 X10'3 (1.1-4.8); LYMPHOCYTES % (AUTO) 24.9 % (21-51); MEAN CORPUSCULAR HGB CONC 33.3 g/dL (33.0-36.5); MEAN CORPUSCULAR VOLUME 84.1 FL (78-98); MEAN PLATELET VOLUME 9.8 FL (7.4-10.4); MONOCYTES # (AUTO) 0.7 X10'3 (0-0.9); MONOCYTES % (AUTO) 6.8 % (2-12); NEUTROPHILS % (AUTO) 64.4 % (42-75); PLATELET COUNT 327 X10'3 (140-440); RED BLOOD COUNT 3.74 X10'6 (4.70-6.10); RED CELL DISTRIBUTION WIDTH 15.7 % (11.5-14.5); WHITE BLOOD COUNT 10.9 X10'3 (4.5-11.0)
[2023-12-03 07:03] LABS: ALANINE AMINOTRANSFERASE 26 U/L (12-78); ALBUMIN 2.7 G/DL (3.4-5.0); ALBUMIN/GLOBULIN RATIO 0.8 (1.1-1.5); ALKALINE PHOSPHATASE 99 IU/L (46-116); ANION GAP 7 (8-16); ASPARTATE AMINO TRANSFERASE 9 U/L (10-37); BILIRUBIN,TOTAL 0.4 MG/DL (0.1-1.0); BLOOD UREA NITROGEN 15 MG/DL (7-18); BUN/CREATININE RATIO 21.4 (10.0-20.0); CALCIUM 9.4 MG/DL (8.5-10.1); CHLORIDE 103 MMOL/L (99-107); GLUCOSE 217 MG/DL (70-104); MAGNESIUM 1.9 MG/DL (1.5-2.4); POTASSIUM 3.4 MMOL/L (3.5-5.1); SODIUM 134 MMOL/L (135-145); TOTAL CARBON DIOXIDE 24.1 MMOL/L (24-32); TOTAL PROTEIN 6.2 G/DL (6.4-8.2); eCRCL 132 ML/MIN; eGFR > 90 ML/MIN
[2023-12-03] MEDS: potassium Cl 20 mEq SR tablet PO PRN (07:33)
[2023-12-03 08:00] VITALS: RESP 16; O2SAT 99
[2023-12-03 10:00] VITALS: BP 134/86; PULSE 99; RESP 18; TEMP 97.4; O2SAT 99
[2023-12-03 18:00] VITALS: BP 126/87; PULSE 71; RESP 14; TEMP 98; O2SAT 96
[2023-12-03 22:00] VITALS: BP 122/74; PULSE 77; RESP 20; TEMP 98.8; O2SAT 97
[2023-12-04 06:00] VITALS: BP 122/79; PULSE 89; RESP 16; TEMP 98.1; O2SAT 97
[2023-12-04 08:13] LABS: BASOPHILS # (AUTO) 0.1 X10'3 (0-0.2); BASOPHILS % (AUTO) 0.7 % (0-1); EOSINOPHILS # (AUTO) 0.2 X10'3 (0-0.9); EOSINOPHILS % (AUTO) 2.1 % (0-6); HEMATOCRIT 33.4 % (42.0-52.0); HEMOGLOBIN 11.1 g/dl (14.0-17.9); LYMPHOCYTES # (AUTO) 2.2 X10'3 (1.1-4.8); LYMPHOCYTES % (AUTO) 21.8 % (21-51); MEAN CORPUSCULAR HEMOGLOBIN 27.9 PG (27.0-31.0); MEAN CORPUSCULAR HGB CONC 33.1 g/dL (33.0-36.5); MEAN CORPUSCULAR VOLUME 84.5 FL (78-98); MEAN PLATELET VOLUME 8.8 FL (7.4-10.4); MONOCYTES # (AUTO) 0.5 X10'3 (0-0.9); MONOCYTES % (AUTO) 4.5 % (2-12); NEUTROPHILS # (AUTO) 7.3 X10'3 (1.8-7.7); NEUTROPHILS % (AUTO) 70.9 % (42-75); PLATELET COUNT 344 X10'3 (140-440); RED BLOOD COUNT 3.96 X10'6 (4.70-6.10); RED CELL DISTRIBUTION WIDTH 15.9 % (11.5-14.5); WHITE BLOOD COUNT 10.3 X10'3 (4.5-11.0)
[2023-12-04 08:42] LABS: ALANINE AMINOTRANSFERASE 26 U/L (12-78); ALBUMIN 2.9 G/DL (3.4-5.0); ALBUMIN/GLOBULIN RATIO 0.8 (1.1-1.5); ALKALINE PHOSPHATASE 116 IU/L (46-116); ANION GAP 7 (8-16); ASPARTATE AMINO TRANSFERASE 18 U/L (10-37); BILIRUBIN,TOTAL 0.6 MG/DL (0.1-1.0); BLOOD UREA NITROGEN 15 MG/DL (7-18); BUN/CREATININE RATIO 17.6 (10.0-20.0); CALCIUM 9.8 MG/DL (8.5-10.1); CHLORIDE 101 MMOL/L (99-107); CREATININE 0.85 MG/DL (0.60-1.10); MAGNESIUM 1.9 MG/DL (1.5-2.4); POTASSIUM 5.2 MMOL/L (3.5-5.1); SODIUM 132 MMOL/L (135-145); TOTAL CARBON DIOXIDE 23.7 MMOL/L (24-32); TOTAL PROTEIN 6.6 G/DL (6.4-8.2); eCRCL 109 ML/MIN; eGFR > 90 ML/MIN
[2023-12-04 08:44] LABS: GLUCOSE 463 MG/DL (70-104)
[2023-12-04 11:00] VITALS: BP 122/79; PULSE 80; RESP 16; TEMP 98; O2SAT 93
[2023-12-04 18:00] VITALS: BP 109/69; PULSE 81; RESP 20; TEMP 98.4; O2SAT 100
[2023-12-04 22:00] VITALS: BP 158/67; PULSE 85; RESP 16; TEMP 97.9; O2SAT 97
[2023-12-05 06:00] VITALS: BP 107/65; PULSE 86; RESP 16; TEMP 98; O2SAT 98
[2023-12-05 10:00] VITALS: BP 116/74; PULSE 79; RESP 15; TEMP 97.9; O2SAT 97
[2023-12-05 18:00] VITALS: BP 105/68; PULSE 88; RESP 18; TEMP 98.4; O2SAT 98
[2023-12-05 20:00] VITALS: RESP 18
[2023-12-05] MEDS: insulin glargine (Lantus) pen - multi-dose SQ SCH (21:11)
[2023-12-05 22:00] VITALS: BP 121/86; PULSE 87; RESP 15; TEMP 98.3; O2SAT 96
[2023-12-06 06:00] VITALS: BP 116/79; PULSE 87; RESP 15; TEMP 98.4; O2SAT 98
[2023-12-06 08:00] VITALS: RESP 16; O2SAT 98
[2023-12-06 18:00] VITALS: BP 106/70; PULSE 84; RESP 14; TEMP 98; O2SAT 98
[2023-12-06 20:10] VITALS: RESP 18
[2023-12-06 22:00] VITALS: BP 109/65; PULSE 89; RESP 13; TEMP 98.3; O2SAT 100
[2023-12-07 06:44] VITALS: BP 118/73; PULSE 70; RESP 14; TEMP 97.3; O2SAT 96
[2023-12-07 08:00] VITALS: RESP 18; O2SAT 96
[2023-12-07 10:56] VITALS: BP 100/61; PULSE 67; RESP 15; TEMP 98.7; O2SAT 96
[2023-12-07 20:20] VITALS: RESP 16
[2023-12-07 22:00] VITALS: BP 109/71; PULSE 84; RESP 15; TEMP 98.3; O2SAT 98
[2023-12-08 06:00] VITALS: BP 115/75; PULSE 64; RESP 16; TEMP 97.6; O2SAT 97
[2023-12-08 08:00] VITALS: RESP 16; O2SAT 97
[2023-12-08 10:00] VITALS: BP 104/63; PULSE 77; RESP 16; TEMP 98.3; O2SAT 96
[2023-12-08] MEDS ORDERED: acetaminophen 325mg tablet PO PRN (11:00)
[2023-12-08 18:00] VITALS: BP 111/69; PULSE 82; RESP 14; TEMP 98.3; O2SAT 96
[2023-12-09 06:00] VITALS: BP 129/73; PULSE 83; RESP 17; TEMP 98; O2SAT 93
[2023-12-09 08:00] VITALS: RESP 17; O2SAT 93
[2023-12-09 18:00] VITALS: BP 120/79; PULSE 103; RESP 18; TEMP 97.5; O2SAT 97
[2023-12-09 20:00] VITALS: RESP 18; O2SAT 97
[2023-12-09 22:00] VITALS: RESP 16
[2023-12-10 06:00] VITALS: BP 95/58; PULSE 82; RESP 16; TEMP 97.9; O2SAT 99
[2023-12-10 08:00] VITALS: RESP 16; O2SAT 99
[2023-12-10 10:00] VITALS: BP 100/71; PULSE 83; RESP 16; TEMP 98; O2SAT 99
[2023-12-10 18:00] VITALS: BP 112/67; PULSE 77; RESP 16; TEMP 98.1; O2SAT 99
[2023-12-10 20:00] VITALS: RESP 16; O2SAT 99
[2023-12-10 22:00] VITALS: BP 113/70; PULSE 83; RESP 16; TEMP 98; O2SAT 98
[2023-12-11] MEDS: DEXTROSE 15 GM of carb/4 tabs (each vial/BOTTLE has 4 tablets) PO PRN (00:17)
[2023-12-11] MEDS: dextrose 50%-water 50ml dispensing syringe IV PRN (00:33)
[2023-12-11 08:10] VITALS: RESP 18; O2SAT 99
[2023-12-11 10:00] VITALS: BP 107/71; PULSE 101; RESP 17; TEMP 98.2; O2SAT 100
[2023-12-11 18:00] VITALS: BP 114/74; PULSE 99; RESP 16; TEMP 97.8; O2SAT 98
[2023-12-11 20:00] VITALS: RESP 16; O2SAT 98
[2023-12-11] MEDS: insulin glargine (Lantus) pen - multi-dose SQ SCH (21:31)
[2023-12-11 22:00] VITALS: BP 110/60; PULSE 84; RESP 16; TEMP 98; O2SAT 98
[2023-12-12 06:00] VITALS: BP 99/57; PULSE 79; RESP 16; TEMP 97.8; O2SAT 97
[2023-12-12 07:40] VITALS: RESP 18; O2SAT 98
[2023-12-12 10:00] VITALS: BP 108/68; PULSE 85; RESP 18; TEMP 98.9; O2SAT 99
[2023-12-12 18:00] VITALS: BP 108/67; PULSE 83; RESP 14; TEMP 97.8; O2SAT 99
[2023-12-12 22:00] VITALS: BP 108/69; PULSE 80; RESP 14; TEMP 98.2; O2SAT 98
[2023-12-13 06:00] VITALS: BP 108/66; PULSE 71; RESP 16; TEMP 97.6; O2SAT 97
[2023-12-13 08:15] VITALS: RESP 18; O2SAT 98
[2023-12-13] MEDS ORDERED: LANTUS SQ ×2 (11:59→15:38)
[2023-12-13] MEDS ORDERED: INSU100I8 SQ ×2 (11:59→15:36)
[2023-12-13] MEDS ORDERED: NEED-137 SUBCUT (15:49)
[2023-12-14 06:00] VITALS: BP 112/68; PULSE 89; RESP 16; TEMP 97.3; O2SAT 99
== END 2023-12-14 10:22 | disposition home health service (06) | DRG 420 ==
LOC: ER 21:51 → UNDOADMIN 12-01 16:03 → ED HOLD 12-01 16:03 → ORTHO 4S 12-01 19:08 → ED HOLD 12-01 19:08
PROVIDERS: ADMIT Family Medicine; ATTEND Family Medicine
DX: E10.69 Type 1 diabetes mellitus with other specified complication (principal); E87.0 Hyperosmolality and hypernatremia; E10.65 Type 1 diabetes mellitus with hyperglycemia; D64.9 Anemia, unspecified; E78.5 Hyperlipidemia, unspecified; D72.829 Elevated white blood cell count, unspecified; Z79.4 Long term (current) use of insulin; Z87.820 Personal history of traumatic brain injury; Z91.011 Allergy to milk products
CPT/HCPCS: 36415; 36600; 71045; 72220; 80053; 81001; 82009; 82803; 82948; 83735; 83930; 84145; 84484; 85018; 85025; 87081; 93005; 96374; 96375; 96376; 99285; A6258; G0378; J1644; J1815; J2405; J2765; J3490; J7030; J7040

== ENCOUNTER 2024-01-19 10:13 | Emergency (ER) | payer MEDICAID ==
[~2024-01-19] VITALS: Ht 175.3 cm; Wt 63.6 kg
[~2024-01-19 10:13] MED LIST changes: +INSU100I8 SQ; +LANTUS SQ; -METF-1203 PO; +NEED-137 SUBCUT; -ROSU10TA28 PO; +ROSU10TA72 PO
[2024-01-19 10:25] VITALS: TEMP 98
[2024-01-19] MEDS: normal saline 1000ml 1,000 ML IV ONE (11:01)
[2024-01-19] MEDS: insulin regular, human 10 units/0.1 ml syringe SQ ONE (11:18)
[2024-01-19 12:30] VITALS: BP 113/77; PULSE 91; RESP 16; O2SAT 99
== END 2024-01-19 13:14 | disposition home or self-care (01) ==
LOC: ER 10:14
DX: E11.65 Type 2 diabetes mellitus with hyperglycemia (principal); F32.A Depression, unspecified; Z79.4 Long term (current) use of insulin; Z79.899 Other long term (current) drug therapy
CPT/HCPCS: 82948; 96372; 99284; J1815; J7030